=== PATIENT | male | born 1960 | race Caucasian/White ===

== ENCOUNTER 2017-03-31 20:29 | Emergency (ER) | payer BC ==
[~2017-03-31] VITALS: Ht 175.3 cm; Wt 94.1 kg
[2017-03-31 20:35] VITALS: BP 163/105; TEMP 36.5; Ht 175.3 cm; Wt 94.1 kg
[2017-03-31] MEDS ORDERED: AMOX875T PO (21:14)
[2017-03-31] MEDS ORDERED: AMOXICILLIN/CLAVULANATE TAB 875 MG TAB PO ONE (21:15)
[2017-03-31] MEDS ORDERED: PRLSR20 PO (21:18)
[2017-03-31] MEDS ORDERED: IBUP-103 PO (21:18)
[2017-03-31 21:33] VITALS: PULSE 72; O2SAT 98
--- NOTE | 2017-03-31 22:45 | EMERGENCY ROOM VISIT NOTE ---
History First contact with patient: 20:55 Chief Complaint: HEADACHE Stated Complaint: HEADACHE History of Present Illness The patient is a 57 year old male who presents to the Emergency Room with complaints of a frontal headache, dental pain and recent bilateral ear fullness. The patient reports that he did have a mild cold approximately 2 weeks ago. In addition to the year fullness, the patient then started to notice pressure in his forehead and face. The patient reports a worsening headache today. He has also noticed some weakness, chills and sweatiness. He denies any chest pain, cough, urinary symptoms or diarrhea. He denies any history of chronic or recurrent sinusitis. He rates his overall discomfort an 8 out of 10. Review of Systems 10 system review was performed and was negative except for pertinent positives and negatives as indicated in history of present illness Past Medical/Surgical History Medical Problems: (1) No significant past medical history Surgical Problems: (1) No history of previous surgery Family History FH: cancer FH: gallbladder disease FH: heart disease Social History Smoking Status: Never Smoker Smokeless Tobacco Use: Yes Alcohol Use: occasionally Marital Status: Occupation Status: employed Current/Historical Medications Scheduled Amoxicillin & Pot Clavulanate (Augmentin 875-125 mg), 1 TAB PO BID Omeprazole (Prilosec), 20 MG PO DAILY Scheduled PRN Ibuprofen Tab (Advil), 400-600 MG PO Q6H PRN for Pain or Fever Allergies Coded Allergies: No Known Allergies (Unverified , 03/31/17) Physical Exam Vital Signs Date Time Temp Pulse Resp B/P Pulse Ox O2 Delivery O2 Flow Rate FiO2 03/31/17 21:33 72 20 98 03/31/17 20:35 36.5 74 18 163/105 98 Room Air Pain Rating (0-10): 8.0 Physical Exam CONSTITUTIONAL: Healthy and well nourished. Alert and oriented X 3 with positive affect. Patient does not appear in any acute distress, nor does he appear toxic. HEENT: Normocephalic, atraumatic. Pupils equal, round and reactive. Examination shows bilateral TM bulging without air-fluid levels, serous or purulent effusion. Nares are clear. The patient does have tenderness to palpation and percussion of the frontal and maxillary sinuses. OROPHARYNX: Mild postnasal drip. No tonsillar hypertrophy or exudates. NECK: Full active range of motion without discomfort. No nuchal rigidity. RESPIRATORY: Clear to auscultation bilaterally with no wheezing, crackles, rhonchi or stridor. CARDIOVASCULAR: Regular rate and rhythm with no murmurs, rubs or gallops. MUSCULOSKELETAL: Full range of motion of all joints without discomfort. INTEGUMENTARY: No rash or other significant dermatologic conditions noted. NEUROLOGIC: Cranial nerves II-XII grossly intact. No focal neurologic deficits noted. Medical Decision & Procedures Medications Administered Medications (Trade) Dose Ordered Sig/Gabriele Route Start Time Stop Time Status Last Admin Dose Admin Amoxicillin/ Clavulanate Potassium (Augmentin Tab) 875 mg ONE ONCE PO 03/31/17 21:15 03/31/17 21:16 DC 03/31/17 21:21 875 MG ED Course Patient history and physical exam were performed. Nurse's notes were reviewed. Vital signs were reviewed, showing an elevated blood pressure 163/105. Patient history and clinical exam findings are consistent with an acute sinusitis. The patient was administered Augmentin 875 mg orally, and received a prescription for Augmentin 875 mg twice a day 10 days. The patient was encouraged to alternate ibuprofen and Tylenol as needed for pain. Follow-up with PCP for recheck in the next 3-5 days if symptoms are not improving. He was instructed to seek further emergent reevaluation for any progressively worsening headache, fevers or other concerning symptoms. I also encouraged the patient to follow-up with his family doctor regarding his elevated blood pressure reading in the emergency department. The patient was happy with plan of care, and voiced understanding of all discharge instructions. Impression Primary Impression: Acute sinusitis Additional Impression: Elevated blood pressure reading Departure Information Dispostion Home / Self-Care Condition FAIR Prescriptions Amoxicillin & Pot Clavulanate (Augmentin 875-125 mg) 1 Tab Tab 1 TAB PO BID for 10 Days, #20 TAB Prov: Edwin Snow PA 03/31/17 Forms HOME CARE DOCUMENTATION FORM, IMPORTANT VISIT INFORMATION Patient Instructions Sinusitis Acute, Sinusitis Self Care, [facility] Additional Instructions Read sinusitis handout. Take Augmentin 875 mg twice daily for 10 days. Ibuprofen or Tylenol as needed for pain. Follow-up with your family doctor for reevaluation in 3-5 days. Seek sooner for reevaluation for any progressively worsening symptoms or developing fever. Problem Qualifiers Primary Impression: Acute sinusitis Sinusitis location: unspecified location Recurrence: non-recurrent Qualified Codes: J01.90 - Acute sinusitis, unspecified
== END 2017-03-31 21:34 | disposition home or self-care (01) ==
LOC: C.EDB 20:31
DX: J20.9 Acute bronchitis, unspecified (principal); R03.0 Elevated blood-pressure reading, without diagnosis of hypertension; Z80.9 Family history of malignant neoplasm, unspecified; Z83.79 Family history of other diseases of the digestive system; Z82.49 Family history of ischemic heart disease and other diseases of the circulatory system

== ENCOUNTER 2019-10-05 09:58 | Inpatient (IN) ==
--- NOTE | 2019-09-20 16:40 | PAT Medication Instructions ---
Medication Instructions Date of Service September 20, 2019 Home Medications amlodipine 5 mg PO QAM carvedilol [Coreg] 12.5 mg PO BID multivitamin 1 cap PO QAM omeprazole 20 mg PO QAM ascorbic acid (vitamin C) [Vitamin C] 500 mg PO DAILY DO NOT take the morning of surgery multivitamin 1 cap PO QAM ascorbic acid (vitamin C) [Vitamin C] 500 mg PO DAILY Take morning of surgery With a small sip of water, OTHERWISE NOTHING TO EAT OR DRINK AFTER MIDNIGHT: amlodipine 5 mg PO QAM carvedilol [Coreg] 12.5 mg PO BID omeprazole 20 mg PO QAM Other Notes If you have any questions please call us at [phone] or [phone] or [phone] or [phone]
--- NOTE | 2019-09-21 11:34 | Anesthesiology Consultation ---
Date of Service September 21, 2019 Assessment & Plan (1) Encounter for pre-operative examination: Chart Review Chart Review: Pending: Refer to Additional Notes / Consult section (pending preop testing (labs, EKG, CXR)) and Patient seen in Pre Admission Testing Teaching & Discussion Pre-Anesthesia Teaching/Discussion Notes: Instructed NPO after midnight before surgery,except medications with 15 cc of water. Medication instructions provid ed according to the PAT guidelines. History Surgery Operation Date: 10/02/19 07:45 Proposed Procedures p L4-L5 Decompression and Fusion, L5-S1 Hardware Removal, Spinal Cord Monitoring - Joel Green DO Height/Weight Height: 5 ft 9 in Weight: 100.7 kg Allergies Allergy/AdvReac Type Severity Reaction Status Date / Time No Known Allergies Allergy Verified 09/18/19 09:43 Medications Home Medications Medication Instructions Recorded Confirmed Last Taken amlodipine 5 mg PO QAM 08/17/18 09/18/19 09/18/19 carvedilol [Coreg] 12.5 mg PO BID 08/17/18 09/18/19 09/18/19 multivitamin 1 cap PO QAM 08/17/18 09/18/19 09/10/18 07:00 omeprazole 20 mg PO QAM 08/17/18 09/18/19 09/18/19 ascorbic acid (vitamin C) [Vitamin 500 mg PO DAILY 09/18/19 09/18/19 Unknown C] Past Medical History Medical History Erythema migrans (Lyme disease) 1.5 years s/p treatment Degenerative disc disease B/L LE numbness (L>R) GERD (gastroesophageal reflux disease) controlled Hypertension Osteoarthritis Exercise / Class Metabolic Activity II 4-5 Yardwork/Stairs/Walk up hill (one flight of stairs (no chest/no sob)) Past Family History Family History Father Family history of heart attack Other Family history of cancer in father Family history of diabetes mellitus in father Past Surgical History Surgical History History of colonoscopy History of colonoscopy with polypectomy History of esophagogastroduodenoscopy (EGD) History of hemorrhoidectomy History of herniorrhaphy UMBILICAL HERNIA History of lumbar fusion L5-S1 History of tonsillectomy Past Anesthesia History No Hx of Anesthesia Complications and No Family Hx of Anesthesia Complications History of PONV No Hx of PONV and Hx of Motion Sickness (mild) Social History Smoking Status: Never smoker tobacco type: smokeless tobacco Do You Dip or Chew Tobacco: Yes (1 CAN PER 2 DAYS/ADVISED NPO) Hx Alcohol Use: Yes Alcohol type: beer alcohol intake frequency: 0-2 drinks per day Alcohol Intake Frequency Comment: 1 BEER/DAY Hx Substance Use: No substance use type: does not use Review of Systems Reflux controlled. Patient denies chest pain, shortness of breath, dyspnea on exertion, cough, wheezing, palpitations. Physical Exam Vital Signs VITALS BP 133/85 P 68 TEMP 98.3 SP02 94%RA RESP 18 PHYSICAL Full neck and c-spine range of motion. Full TMJ range of motion. TMD 3 finger breaths Mallampati Score 2 Dentition: intact Lungs: clear throughout to auscultation, missing molars Cardiac: regular rate and rhythm, no murmurs noted Spine: normal Carotid arteries: negative bruit Extremities: no edema Testing Echocardiogram Date: 05/08/18 EF: 60-65% LV Function: normal Other Findings: + LVH (mild concentric) and + diastolic dysfunction (Grade 1 (abnormal relaxation pattern)) Valvular Disease: + no significant valvular disease
--- NOTE | 2019-09-21 12:06 | XRay Report ---
XR chest Pre-admission PA/Lat CLINICAL HISTORY: 59 years-old Male presenting with preoperative assessment. TECHNIQUE: PA and lateral views of the chest were obtained. COMPARISON: 08/23/2018. FINDINGS: Borderline cardiomegaly. Lungs and pleural spaces clear. Degenerative changes of the thoracic spine. Upper abdomen normal. IMPRESSION: 1. Borderline cardiomegaly. No other convincing evidence of acute cardiopulmonary disease. Electronically signed by: Randell Quan M.D. 09/21/2019 12:04 PM
[2019-09-21 12:09] LABS: Basophils # (auto) 0.06 K/uL (0-0.2); Eosinophils # (auto) 0.28 K/uL (0-0.5); Eosinophils % (auto) 4.9 %; Hematocrit (blood only) 42.2 % (42-52); Hemoglobin 14.7 g/dL (14.0-18.0); Immature Granulocytes # (auto) 0.01 K/uL (0.00-0.02); Immature Granulocytes % (auto) 0.2 %; Lymphocytes # (auto) 1.83 K/uL (1.2-3.4); Mean Corpuscular Hgb Conc 34.8 g/dL (32-36); Mean Corpuscular Volume 91.7 fL (80-100); Mean Platelet Volume 8.5 fL (7.4-10.4); Monocytes # (auto) 0.47 K/uL (0.11-0.59); Monocytes % (auto) 8.2 %; Neutrophils # (auto) 3.07 K/uL (1.4-6.5); Neutrophils % (auto) 53.7 %; Platelet Count 243 K/uL (130-400); RDW Coefficient of Variation 12.1 % (11.5-14.5); RDW Standard Deviation 40.7 fL (36.4-46.3); White Blood Count 5.72 K/uL (4.8-10.8)
[2019-09-21 12:12] LABS: Appearance Urine Clear (Clear); Bilirubin Urine Negative (Negative); Blood Urine Negative (Negative); Color Urine Yellow; Glucose Urine UA Negative (Negative); Ketones Urine Negative (Negative); Leukocyte Esterase Urine Negative (Negative); Nitrite Urine Negative (Negative); Protein Urine Negative (Negative); Specific Gravity Urine 1.015 (1.000-1.030); Urobilinogen Urine Negative (Negative)
[2019-09-21 12:16] LABS: Calcium 9.4 mg/dl (8.5-10.1); Creatinine Clr Calc Pharmacy 95.3 ml/min; Est GFR (African American) 96.4; Est GFR (Non-African American) 83.2; Potassium 4.1 mmol/L (3.5-5.1)
[2019-09-21 12:27] LABS: Partial Thromboplastin Time 28.2 Seconds (21.0-31.0); Prothrombin Time 10.7 Seconds (9.0-12.0)
[~2019-10-05 09:58] MED LIST: ACETAMINOPHEN 500 MG TAB PO SCH; CEFAZOLIN 2000MG 2,000 MG/15 ML SYR IV SCH; CeleBREX 200 MG CAP PO SCH; GABAPENTIN 600 MG DOSE PO SCH; LR 15ML/HR IV SCH
[2019-10-05] MEDS ORDERED: ONDANSETRON INJ 2 MG/ML 2 ML VIAL IV PRN ×2 (10:38→15:47)
[2019-10-05] MEDS ORDERED: ATROPINE SULFATE 0.1 MG/ML 10ML SYR IV PRN (10:38)
[2019-10-05] MEDS ORDERED: ePHEDrine sulfate 50 MG/ML AMP IV PRN (10:38)
[2019-10-05] MEDS ORDERED: MoRPHine SULFATE 10 MG/ML CARP/VIAL IV PRN (10:38)
[2019-10-05] MEDS ORDERED: MIDAZOLAM HCL 1 MG/ML 2ML VIAL ONE (11:43)
[2019-10-05] MEDS ORDERED: fentaNYL citrate 100 MCG/2 ML VIAL ONE ×5 (11:43→14:15)
[2019-10-05] MEDS ORDERED: HYDROmorphone INJ 2 MG/ML SYR/VIAL ONE ×2 (11:43→14:38)
--- NOTE | 2019-10-05 12:01 | History & Physical Bridge Note ---
Date of Service October 05, 2019 History & Physical Bridge Note I have examined the patient, reviewed the History & Physical and in the interval since the performance of the History & Physical I have noted the following changes of clinical significance: no changes noted
--- NOTE | 2019-10-05 12:05 | History & Physical Report ---
Date of Service October 05, 2019 Assessment & Plan (1) Neurogenic claudication due to lumbar spinal stenosis: L4-L5 decompression and fusion hardware removal L5-S1 Present on Admission?: Yes History of Present Illness Chief Complaint: Back and bilateral leg pain Primary Care Provider: Amparo Ojeda MD This is a 59-year-old male well-known to me that presents with worsening back and leg pain. After failing course of nonoperative care is here for surgical intervention. Allergies Allergy/AdvReac Type Severity Reaction Status Date / Time No Known Allergies Allergy Verified 10/05/19 10:26 Home Medications Home Medications Medication Instructions Recorded Confirmed Type amlodipine 5 mg PO QAM 08/17/18 10/05/19 History carvedilol [Coreg] 12.5 mg PO BID 08/17/18 10/05/19 History multivitamin 1 cap PO QAM 08/17/18 10/05/19 History omeprazole 20 mg PO QAM 08/17/18 10/05/19 History ascorbic acid (vitamin C) [Vitamin 500 mg PO DAILY 09/18/19 10/05/19 History C] Past Med/Surg History Medical History Erythema migrans (Lyme disease) 1.5 years s/p treatment Degenerative disc disease B/L LE numbness (L>R) GERD (gastroesophageal reflux disease) controlled Hypertension Osteoarthritis Surgical History History of colonoscopy History of colonoscopy with polypectomy History of esophagogastroduodenoscopy (EGD) History of hemorrhoidectomy History of herniorrhaphy UMBILICAL HERNIA History of lumbar fusion L5-S1 History of tonsillectomy Family History Father Family history of heart attack Other Family history of cancer in father Family history of diabetes mellitus in father Social History Preferred Language: Kyr[place]z Communication Ability: Effective 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 Results & Data Vital Signs (Past 12 Hours) Vital Signs Temp Pulse Resp BP Pulse Ox 10/05/19 10:28 36.8 C 61 18 138/85 95
[2019-10-05] MEDS ORDERED: BUPIVACAINE/EPINEPHRINE 0.25% 1:200,000 30 ML VIAL ONE (12:13)
[2019-10-05] MEDS ORDERED: BACITRACIN INJ 50,000 UNIT VIAL ONE (12:13)
[2019-10-05] MEDS ORDERED: FLOSEAL HEMOSTATIC MATRIX 10ML TOP ONE (14:30)
[2019-10-05] MEDS ORDERED: PROPOFOL IV EMULSION 10 MG/ML 20 ML VIAL IV ONE (14:39)
[2019-10-05] MEDS ORDERED: DEXAMETHASONE SOD INJ 4 MG/ML VIAL ONE (14:39)
[2019-10-05] MEDS ORDERED: GLYCOPYRROLATE 0.2 MG/ML VIAL ONE (14:39)
[2019-10-05] MEDS ORDERED: ePHEDrine sulfate 50 MG/ML SYR ONE (14:39)
[2019-10-05] MEDS ORDERED: ROCURONIUM BROMIDE 10 MG/ML 5 ML VIAL ONE (14:39)
[2019-10-05] MEDS ORDERED: NEOSTIGMINE METHYLSULFATE 1 MG/ML 10ML VIAL ONE (14:39)
[2019-10-05] MEDS ORDERED: LIDOCAINE HCL 2% 2 ML VIAL/AMP(20MG/ML) INFIL ONE (14:39)
[2019-10-05] MEDS ORDERED: ONDANSETRON INJ 2 MG/ML 2 ML VIAL ONE (14:39)
[2019-10-05] MEDS ORDERED: ePHEDrine sulfate 50 MG/ML AMP ONE (14:39)
--- NOTE | 2019-10-05 14:53 | Operative Report ---
Post Operative Report Pre & Post Diagnosis Operation Date: 10/02/19 12:45 <No data on this case meets the specified criteria> Operation Date: 10/05/19 11:30 Pre-Op Diagnosis: Lumbar spinal stenosis with neurogenic claudication Post-Op Diagnosis: Same I identified the patient and participated in the time-out.: Yes Procedure Operation Date: 10/02/19 12:45 <No data on this case meets the specified criteria> Operation Date: 10/05/19 11:30 Actual Procedures #1 removal of posterior instrumentation L5-S1. #2 exploration of fusion L5-S1. #3 lumbar decompression with bilateral medial facetectomies and foraminotomies L3-4 L4-5. #4 posterior spinal fusion L4-5. #5 placement posterior instrumentation L4-5 L5-S1. #6 interbody fusion L4-5 per #7 placement of titanium 12 x 26 mm cage at L5-S1. #8 placement locally harvested morselized autograft in the posterior lateral gutters. #9 placement infuse collagen sponge by mass graft in the posterior lateral gutters and ostial amp in the interbody space. Surgeon Joel Green, DO Extension Work Instructor None Estimated Blood Loss 525 Findings See Below The patient is 5 foot 9 inches tall weighing over 99 kg with a BMI in excess of 32. This combined with excess blood loss over 500 cc created significant technical difficulty at at least 40% increase in operative time. Specimens None Indications This is a 59-year-old male well-known to me that presents with above-mentioned diagnosis after failing extensive course of nonoperative care is here for surgical intervention. Description of Procedure Patient was met with identified and informed consent obtained. Patient was then taken to the operative suite underwent intubation placed in the prone position on the Jono table on top of the Arian frame. All bony prominences well- padded eyes inspected to ensure no external pressure placed upon the peer at this point the lumbar spine was prepped and draped in a normal sterile fashion. Sharp dissection with the assistance of Bovie cautery was performed down to and exposing the lamina transverse processes of L4 and instrumentation at L5 and S1 levels bilaterally. Then proceed remove the hardware bilaterally exploring the fusion mass noting to be maturing. I performed a complete laminectomy of L4 partial laminectomy of L3 including bilateral medial vasectomies foraminotomies addressing stenosis. Pedicle screws were then placed in L4-L5 and S1 levels bilaterally with assistance of fluoroscopy the process loraine placed. By way of a trans-foraminal approach on the left complete discectomy was performed endplates curetted to subcortical mean bone and a 12 x 26 mm titanium cage filled with ostium bone graft tapped in position. Rods and locked in final position bilaterally. The transverse processes of L4 and L5 bur to subcortical bleeding bone. Infuse collagen sponge master graft and local autograft was placed in the posterior lateral gutters. 15 round BEA drain inserted. Incision was then closed with 1 Vicryl in the fascia 2-0 Vicryl subtenons in 4 Monocryl for final skin closure. Steri-Strip sterile dressings placed. Patient awakened taken to PACU stable condition. Please note spinal cord monitoring was utilized that the procedure no changes noted. I attest to the content of the Intraoperative Record and any orders documented therein. Any exceptions are noted below.
[2019-10-05] MEDS: fentaNYL citrate 100 MCG/2 ML VIAL IV PRN ×2 (15:10→15:15)
--- NOTE | 2019-10-05 15:36 | Fluoroscopy Report ---
FL lumbar spine 2-3V CLINICAL HISTORY: L4-L5 DECOMPRESSION AND FUSION L5-S1 HARDWARE REMOVAL COMPARISON STUDY: None FLUOROSCOPY TIME: 10 seconds NUMBER OF FLUOROSCOPIC IMAGES: 2 FINDINGS: Image intensifier support for an L4-S1 decompression and fusion procedure. There was partia l hardware removal. IMPRESSION: Image intensifier support for low lumbar laminectomy and fusion. The above report was generated using voice recognition software. It may contain grammatical, syntax or spelling errors. Electronically signed by: Bijan Duran M.D. 10/05/2019 3:35 PM
[2019-10-05] MEDS: LACTATED RINGER'S 1,000 ML IV SCH ×2 (15:45→18:42)
[2019-10-05] MEDS ORDERED: DO NOT ADMINISTER PNEUMOCOCCAL VACCINE PRN (15:47)
[2019-10-05] MEDS ORDERED: DO NOT ADMINISTER FLU VACCINE PRN (15:47)
[2019-10-05] MEDS ORDERED: ACETAMINOPHEN 500 MG TAB PO PRN (15:47)
[2019-10-05] MEDS ORDERED: SOD PHOSPHATE/SOD BIPHOSPHATE ENEMA 132 ML BTL PR PRN (15:47)
[2019-10-05] MEDS ORDERED: HYDROmorphone INJ 1 MG/ML SYRINGE IV PRN (15:47)
[2019-10-05] MEDS ORDERED: NALOXONE HCL 0.4 MG/1 ML VIAL/CARP IV PRN (15:47)
[2019-10-05] MEDS ORDERED: ACETAMINOPHEN 1,000 MG/100 ML VIAL IV PRN (15:47)
[2019-10-05] MEDS ORDERED: TRAMADOL HCL 50 MG TABLET PO PRN (15:47)
[2019-10-05] MEDS ORDERED: LORazepam 0.5 MG TAB PO PRN (15:47)
[2019-10-05] MEDS ORDERED: BISACODYL 10 MG SUPP PR PRN (15:47)
[2019-10-05] MEDS ORDERED: LORazepam 0.5 MG/1 ML VIAL IV PRN (15:47)
[2019-10-05] MEDS ORDERED: OXYCODONE HCL IR 5 MG TAB (IMMEDIATE RELEASE) PO PRN (15:47)
[2019-10-05] MEDS ORDERED: METOCLOPRAMIDE HCL INJ 5 MG/ML 2 ML VIAL IV PRN (15:47)
[2019-10-05] MEDS ORDERED: HYDROmorphone INJ 0.5 MG/0.5 ML SYR IV PRN (15:47)
[2019-10-05] MEDS ORDERED: MAGNESIUM HYDROXIDE SUSP 30 ML UDC PO PRN (15:47)
[2019-10-05] MEDS ORDERED: PROMETHAZINE HCL 12.5 MG in SODIUM CHLORIDE 0.9% 50 ML IV PRN (15:47)
[2019-10-05] MEDS ORDERED: ALUMINUM/MAGNESIUM SUSP 30 ML UDC PO PRN (15:47)
[2019-10-05] MEDS ORDERED: ONDANSETRON 4 MG OD TAB PO PRN (15:47)
[2019-10-05] MEDS ORDERED: FAMOTIDINE 20 MG TAB PO PRN (15:47)
--- NOTE | 2019-10-05 16:02 | Anesthesiology Progress Note ---
Date of Service October 05, 2019 Anesthesia Post Procedure Vital Signs Vital Signs: Temp Pulse Pulse Resp BP Pulse Ox 10/05/19 15:35 75 16 129/77 99 10/05/19 15:25 36.5 C 59 L 14 130/84 94 10/05/19 15:15 70 14 138/79 98 10/05/19 15:05 76 12 140/93 96 10/05/19 14:59 36.1 C L 71 14 141/85 H 96 10/05/19 10:28 36.8 C 61 18 138/85 95 Pain Intensity Back: Pain Intensity: 5 Transfer of Care Handoff Completed per policy Notes Mental Status: alert / awake / arousable and participated in evaluation Patient Amnestic to Procedure: Yes Nausea / Vomiting: adequately controlled Pain: adequately controlled Airway Patency, RR, SpO2: stable & adequate BP & HR: stable & adequate Hydration State: stable & adequate Anesthetic Complications: no major complications apparent and Pt Satisfied with anesthetic care
[2019-10-05] MEDS: KETOROLAC 30 MG/ML VIAL IV SCH ×2 (16:12→21:11)
[2019-10-05] MEDS: carvediloL 12.5 MG TAB PO SCH (20:17)
[2019-10-05] MEDS: CEFAZOLIN 2000MG 2,000 MG/15 ML SYR IV SCH (20:17)
[2019-10-05] MEDS: DOCUSATE SODIUM/SENNA 50/8.6MG TAB PO SCH (20:17)
[2019-10-05] MEDS: ERYTHROMYCIN OP OINT 5 MG/GM 3.5 GM TUBE OPR SCH (22:25)
[2019-10-06] MEDS: LACTATED RINGER'S 1,000 ML IV SCH (00:33)
[2019-10-06] MEDS: KETOROLAC 30 MG/ML VIAL IV SCH ×2 (05:07→09:12)
[2019-10-06] MEDS: CEFAZOLIN 2000MG 2,000 MG/15 ML SYR IV SCH (05:07)
[2019-10-06] MEDS: POLYETHYLENE (MIRALAX) 17 GM PACK PO SCH ×3 (05:07→17:58)
[2019-10-06 05:55] LABS: Basophils # (auto) 0.01 K/uL (0-0.2); Basophils % (auto) 0.1 %; Hematocrit (blood only) 35.7 % (42-52); Hemoglobin 12.5 g/dL (14.0-18.0); Immature Granulocytes # (auto) 0.03 K/uL (0.00-0.02); Immature Granulocytes % (auto) 0.2 %; Lymphocytes % (auto) 10.1 %; Mean Corpuscular Hemoglobin 31.6 pg (25-34); Mean Corpuscular Volume 90.4 fL (80-100); Mean Platelet Volume 8.6 fL (7.4-10.4); Monocytes # (auto) 0.84 K/uL (0.11-0.59); Monocytes % (auto) 6.5 %; Neutrophils # (auto) 10.75 K/uL (1.4-6.5); Neutrophils % (auto) 83.1 %; Platelet Count 223 K/uL (130-400); RDW Standard Deviation 39.8 fL (36.4-46.3); Red Blood Count 3.95 M/uL (4.7-6.1); White Blood Count 12.93 K/uL (4.8-10.8)
[2019-10-06 06:22] LABS: BUN Creatinine Ratio 11.1 (10-20); Calcium 8.4 mg/dl (8.5-10.1); Creatinine Clr Calc Pharmacy 118.5 ml/min; Est GFR (African American) 114.9; Est GFR (Non-African American) 99.2
[2019-10-06] MEDS: PANTOprazole 40 MG TAB PO SCH (07:34)
[2019-10-06] MEDS: AMLODIPINE BESYLATE 5 MG TAB PO SCH (07:34)
[2019-10-06] MEDS: MULTIVITAMIN TAB PO SCH (07:34)
[2019-10-06] MEDS: ASCORBIC ACID 500 MG TAB PO SCH (07:34)
[2019-10-06] MEDS: carvediloL 12.5 MG TAB PO SCH ×2 (07:34→22:10)
[2019-10-06] MEDS: ERYTHROMYCIN OP OINT 5 MG/GM 3.5 GM TUBE OPR SCH ×3 (07:35→22:08)
--- NOTE | 2019-10-06 07:58 | Anesthesiology Progress Note ---
Date of Service October 06, 2019 Anesthesia Post Procedure Vital Signs Vital Signs: Temp Pulse Pulse Pulse Pulse Pulse Resp 10/06/19 02:57 36.4 C L 88 16 10/05/19 23:05 36.6 C 89 16 10/05/19 20:11 36.3 C L 93 H 18 10/05/19 18:46 36.3 C L 89 16 10/05/19 17:55 36.4 C L 86 18 10/05/19 16:54 36.3 C L 77 16 10/05/19 16:15 34.9 C L 71 16 10/05/19 15:35 75 16 10/05/19 15:25 36.5 C 59 L 14 10/05/19 15:15 70 14 10/05/19 15:05 76 12 10/05/19 14:59 36.1 C L 71 14 10/05/19 10:28 36.8 C 61 18 BP BP Pulse Ox 10/06/19 02:57 110/69 98 10/05/19 23:05 120/78 93 10/05/19 20:11 134/88 96 10/05/19 18:46 131/83 91 10/05/19 17:55 133/81 92 10/05/19 16:54 137/84 97 10/05/19 16:15 129/81 93 10/05/19 15:35 129/77 99 10/05/19 15:25 130/84 94 10/05/19 15:15 138/79 98 10/05/19 15:05 140/93 96 10/05/19 14:59 141/85 H 96 10/05/19 10:28 138/85 95 Pain Intensity Back: Pain Intensity: 4 Notes Mental Status: alert / awake / arousable Patient Amnestic to Procedure: Yes Nausea / Vomiting: adequately controlled Pain: adequately controlled Airway Patency, RR, SpO2: stable & adequate BP & HR: stable & adequate Hydration State: stable & adequate Anesthetic Complications: no major complications apparent
[2019-10-06] MEDS ORDERED: VOLUVEN IN NSS IV ONE (08:16)
--- NOTE | 2019-10-06 10:46 | Orthopedic Progress Note ---
Date of Service October 06, 2019 Assessment & Plan (1) Neurogenic claudication due to lumbar spinal stenosis: This time we will continue physical therapy monitor his BEA output anticipate discharge home later this weekend. Present on Admission?: Yes Subjective Back pain controlled left leg pain improved. Physical Exam Physical Exam: Patient is in the chair at the bedside. Is good strength testing. Appears comfortable. Results & Data Vital Signs (Past 12 Hours) Vital Signs Temp Pulse Pulse Pulse Resp BP BP 10/06/19 08:11 36.6 C 80 20 132/81 10/06/19 02:57 36.4 C L 88 16 110/69 10/05/19 23:05 36.6 C 89 16 120/78 Pulse Ox 10/06/19 08:11 93 10/06/19 02:57 98 10/05/19 23:05 93
[2019-10-06] MEDS: DOCUSATE SODIUM/SENNA 50/8.6MG TAB PO SCH (22:10)
[2019-10-07] MEDS: POLYETHYLENE (MIRALAX) 17 GM PACK PO SCH ×3 (01:02→12:36)
[2019-10-07] MEDS: carvediloL 12.5 MG TAB PO SCH (07:31)
[2019-10-07] MEDS: MULTIVITAMIN TAB PO SCH (07:31)
[2019-10-07] MEDS: AMLODIPINE BESYLATE 5 MG TAB PO SCH (07:32)
[2019-10-07] MEDS: PANTOprazole 40 MG TAB PO SCH (07:32)
[2019-10-07] MEDS: ERYTHROMYCIN OP OINT 5 MG/GM 3.5 GM TUBE OPR SCH (07:33)
[2019-10-07] MEDS: ASCORBIC ACID 500 MG TAB PO SCH (07:33)
--- NOTE | 2019-10-07 09:00 | Discharge Summary ---
Date of Service October 07, 2019 Admission HPI Per Admitting Provider This is a 59-year-old male well-known to me that presents with worsening back and leg pain. After failing course of nonoperative care is here for surgical intervention. Admission Exam (Per Admitting) Constitutional WD/WN, vitals as above Eyes normal visual lynch by confrontation ENMT external ear and nose normal, oropharynx normal Neck normal visual inspection Respiratory normal respiratory effort Cardiovascular Extremities: normal capillary refill Gastrointestinal (Abdomen) Inspection/Auscultation: abdomen normal to inspection Musculoskeletal Extremities: extremities normal to inspection and strength 5/5 throughout Gait: normal gait Skin no rashes, warm and dry Neurologic normal touch/pain/proprioception and moves all extremities Psychiatric A+Ox3, euthymic affect Eye Contact: good eye contact Discharge Data Consultations 10/05/19 15:47 Consult Case Management - Discharge Planning Routine Procedures Performed Operation Date: 10/02/19 12:45 <No data on this case meets the specified criteria> Operation Date: 10/05/19 11:30 Actual Procedures p L4-S1 Decompression and Fusion, L4-L5 Interbody Cage(Not Applicable) - Joel Green DO s L5-S1 Hardware Removal with Spinal Cord Monitoring(Not Applicable) - Joel Green DO Hospital Course (1) Neurogenic claudication due to lumbar spinal stenosis: Patient has had an uncomplicated postoperative course status post lumbar fusion. He is being discharged home on postoperative day 2. Pain is greatly improved. Ambling over 600 feet in physical therapy. We will continue with aggressive bowel regimen. Discharge Instructions ACTIVITY RECOMMENDATIONS: SELF CARE INSTRUCTIONS AFTER THORACIC/LUMBAR FUSIONS 1. You may walk to your tolerance. It is good exercise for your legs and back. Expect some back and intermittent leg aches and pains. 2. You may perform "counter-top" level activities (make a sandwich, noemí with a project, etc.). 3. No bending or lifting of more than 10 pounds or back twisting of any nature (roll like a log when turning in bed). 4. You may ride in a car for 20-30 minutes at a time. No driving until after your first visit with your doctor. 5. Frequent changes of position and restricting sitting to 30 minutes at a time will help limit the amount of back spasms and stiffness you may experience. 6. You may discontinue the use of ambulatory aids (cane, crutches, etc.) once your strength and confidence allow. 7. You may manufacturing clerk the shower and let water strike your incision when you arrive home at least once daily. Do not take a tub bath, sit in a hot tub or go into a swimming pool until after your first recheck in the office. SPECIAL CARE INSTRUCTIONS: VERY IMPORTANT TO READ AND REVIEW A. Your surgical incision has been closed with a cosmetic suture under the skin that will dissolve in about 6 weeks. In 14 days, you can use a pair of clean scissors and cut the suture that is left outside of the skin at the ends of your incision. 1. The small skin tapes can be removed 7 days after surgery if they have not fallen off by that point. 2. You may keep the wound open to air as much as possible to promote healing after post-op day number 5 unless told otherwise by your doctor. 3. If you think the wound looks like it is becoming infected (redness or worsening drainage) and/or you are experiencing fever, chill or worsening back pain and muscle spasms, contact the office so that we may evaluate you as soon as possible. B. Complications are uncommon, but please contact us if you have any signs or symptoms of: 1. wound infection (fever higher than 102.5 degrees F, redness, separation of wound, drainage, or increasing pain from the incision) 2. blood clots in legs (pain, swelling, redness and warmth in legs) 3. urinary tract infection (fever higher than 102.5 degrees F, burning upon urination or increased frequency of urination) 4. nerve problems (inability to walk on your toes or heels, numbness, loss of bowel or bladder control) 5. any other symptoms that concern you C. Please call the office at if you have any concerns or questions about your operation or recovery. D. No smoking! Smoking drastically decreases the chance of a solid fusion. E. Do not take any anti-inflammatory medications (Indocin, Advil, Motrin, Aspirin, Naprosyn, etc.) as these may inhibit the chance of a solid fusion. Tylenol is okay to take for pain. MANAGING PAIN AFTER SPINAL SURGERY 1. Narcotic medication is intended for short-term use and will be provided for surgical pain. Surgical pain usually lasts for a period of 4-6 weeks. Narcotic medication includes Percocet, Vicodin, Darvocet, Tylenol #3 or Lortab. 2. Longer-term pain is more appropriately treated with non-narcotic medication such as Tylenol ES. 3. Muscle spasm is not appropriately treated with narcotics. Muscle relaxers such as Soma, Flexeril or Skelaxin can be used along with Tylenol ES. 4. Remember that we all live with some "aches and pains". This is not unusual or uncommon after an injury or as we get older. a. Back pain is expected and may include muscle spasms for 4 to 6 weeks after surgery. The pain should gradually improve. If the pain worsens for no apparent reason, please contact the office. b. Intermittent leg pain may also be experienced and should not be concerned about unless it worsens for no apparent reason. If so, please contact the office. 5. We will provide appropriate medication within the normal guidelines of their prescribed use. We will also be very cautious and aware of potential abuse and extended duration of patients' medication needs. a. Pain medications are for your comfort and to assist with sleep and rest so that the tissue can heal. They are not provided in order to return to normal activity and should not be used through the day. To do so or worsening pain at night can result from ongoing tissue damage and development of tolerance to the prescribed medicine. 6. Please allow 2-3 days to process refills. Prescriptions will not be mailed but must be picked up at the office. FOLLOW UP VISIT: Keep your scheduled follow-up appointment. Any questions, please call the office at . Supervising Physician Co-Signing Physician Notes Dr. Joel Green
--- NOTE | 2019-10-13 08:42 | Coding Query ---
BMI To promote full compliance with coding requirements relating to patient care, physician participation is requested in all cases of sinter press operator uncertainty. Please assist us with the question(s) below: Please place an X within the parenthesis (x). If other, please document: BMI ( ) was documented in this record for this patient. If the BMI is significant, please check the box that provides a more specific associated diagnosis: (x ) Overweight/Obese ( ) Obesity ( ) Morbid obesity ( ) Obesity Hypoventilation Syndrome (OHS) ( ) Heathy weight, not significant ( ) Underweight/Thin ( ) Other, please specify Thank you Jonna PEARCE
== END 2019-10-07 13:22 | disposition home or self-care (01) | DRG 455 ==
LOC: ASU 09:58 → 3E 15:08

== ENCOUNTER 2020-07-18 06:17 | Observation (INO) ==
--- NOTE | 2020-07-02 16:30 | PAT Medication Instructions ---
Medication Instructions Date of Service July 02, 2020 Home Medications amlodipine 5 mg PO QAM carvedilol [Coreg] 12.5 mg PO BID multivitamin 1 cap PO QAM ibuprofen 600 mg PO Q8H PRN omeprazole 20 mg PO QAM ASK your surgeon for instructions ibuprofen 600 mg PO Q8H PRN DO NOT take the morning of surgery multivitamin 1 cap PO QAM Take morning of surgery With a small sip of water, OTHERWISE NOTHING TO EAT OR DRINK AFTER MIDNIGHT: amlodipine 5 mg PO QAM carvedilol [Coreg] 12.5 mg PO BID omeprazole 20 mg PO QAM Take evening before surgery carvedilol [Coreg] 12.5 mg PO BID Other Notes If you have any questions please call us at [phone] or [phone] or [phone] or [phone]
--- NOTE | 2020-07-04 12:45 | Anesthesiology Consultation ---
Date of Service July 04, 2020 Assessment & Plan (1) Encounter for pre-operative examination: *Per PAT assessment on 07/04: Travel screen negative. No known COVID-19 positive contacts. No current COVID-19 related symptoms. Surgeon arranging preop COVID testing (07/15, location TBD). Awaiting results. Chart Review Chart Review: Acceptable Risk for Surgery and Patient seen in Pre Admission Testing Teaching & Discussion Pre-Anesthesia Teaching/Discussion Notes: Instructed NPO after midnight before surgery,except medications with 15 cc of water. Medication instructions provided according to the PAT guidelines. History Surgery Operation Date: 07/18/20 12:35 Proposed Procedures p Partial Nephrectomy Robotic Assisted - Trey Oh MD s Laparoscopic Supraumbilical Hernia Repair - Bijan Buenrostro MD *Left* partial nephrectomy per 06/20/20 urology/surgeon's office visit note Height/Weight Height: 5 ft 9 in Weight: 105.5 kg Allergies Allergy/AdvReac Type Severity Reaction Status Date / Time No Known Allergies Allergy Verified 06/28/20 09:44 Medications Home Medications Medication Instructions Recorded Confirmed Last Taken amlodipine 5 mg PO QAM 08/17/18 06/28/20 10/05/19 08:00 carvedilol [Coreg] 12.5 mg PO BID 08/17/18 06/28/20 10/05/19 08:00 multivitamin 1 cap PO QAM 08/17/18 06/28/20 10/04/19 08:00 ibuprofen 600 mg PO Q8H PRN 06/28/20 06/28/20 Unknown omeprazole 20 mg PO QAM 06/28/20 06/28/20 Unknown Past Medical History Medical History Degenerative disc disease B/L LE numbness (L>R) Diverticular disease Erythema migrans (Lyme disease) 3 years s/p treatment GERD (gastroesophageal reflux disease) controlled Hypertension Obesity Osteoarthritis Renal mass Exercise / Class Metabolic Activity II 4-5 Yardwork/Stairs/Walk up hill Past Family History Family History Father Family history of heart attack Other Family history of cancer in father Family history of diabetes mellitus in father Past Surgical History Surgical History History of colonoscopy History of esophagogastroduodenoscopy (EGD) History of hemorrhoidectomy History of herniorrhaphy UMBILICAL HERNIA History of lumbar fusion L5-S1 History of tonsillectomy History of tooth extraction Past Anesthesia History No Hx of Anesthesia Complications and No Family Hx of Anesthesia Complications History of PONV No Hx of PONV and No Hx of Motion Sickness Social History Smoking Status: Never smoker Do You Dip or Chew Tobacco: Yes (loose tobacco> 1 can/2 days- advised NPO AM DOS) Hx Alcohol Use: Yes Alcohol type: beer alcohol intake frequency: a few times a week Hx Substance Use: No substance use type: does not use Review of Systems Reflux controlled. Patient denies chest pain, shortness of breath, dyspnea on exertion, fever, chills, cough, wheezing, palpitations. Physical Exam Vital Signs VITALS BP 129/83 P 67 TEMP 98.4 SP02 95%RA RESP 16 PHYSICAL Full neck and c-spine range of motion (cervicalgia with extension). Full TMJ range of motion. TMD 3.5 finger breaths Mallampati Score 2 Dentition: missing molars Lungs: clear throughout to auscultation Cardiac: regular rate and rhythm, no murmurs noted Spine: normal Carotid arteries: negative bruit Extremities: no edema Testing Laboratory Results 07/04/20 13:28 07/04/20 13:28 PT 11.0 Seconds (9.0-12.0) 07/04/20 13:28 INR 1.0 (0.9-1.1) 07/04/20 13:28 APTT 30.2 Seconds (21.0-31.0) 07/04/20 13:28 Urine Color Yellow 07/04/20 13:28 Urine Appearance Clear (Clear) 07/04/20 13:28 Urine pH 7.5 (4.5-7.5) 07/04/20 13:28 Ur Specific [place] 1.008 (1.000-1.030) 07/04/20 13:28 Urine Protein Negative (Negative) 07/04/20 13:28 Urine Glucose (UA) Negative (Negative) 07/04/20 13:28 Urine Ketones Negative (Negative) 07/04/20 13:28 Urine Nitrite Negative (Negative) 07/04/20 13:28 Ur Leukocyte Esterase Negative (Negative) 07/04/20 13:28 Blood Type A Positive 07/04/20 13:28 Antibody Screen NEGATIVE 07/04/20 13:28 Electrocardiogram Date: 09/21/19 NSR at 68bpm. iRBBB. Chest X-Ray Date: 09/21/19 Borderline cardiomegaly. No other convincing evidence of acute cardiopulmonary disease. Echocardiogram Date: 05/08/18 EF: 60-65% LV Function: normal Other Findings: + LVH (mild concentric) and + diastolic dysfunction (Grade 1 (abnormal relaxation pattern)) Valvular Disease: + no significant valvular disease
[2020-07-04 14:03] LABS: Basophils # (auto) 0.06 K/uL (0-0.2); Eosinophils # (auto) 0.29 K/uL (0-0.5); Eosinophils % (auto) 4.7 %; Hematocrit (blood only) 43.1 % (42-52); Hemoglobin 14.6 g/dL (14.0-18.0); Immature Granulocytes # (auto) 0.01 K/uL (0.00-0.02); Immature Granulocytes % (auto) 0.2 %; Lymphocytes # (auto) 2.06 K/uL (1.2-3.4); Lymphocytes % (auto) 33.3 %; Mean Corpuscular Hgb Conc 33.9 g/dL (32-36); Mean Corpuscular Volume 91.5 fL (80-100); Mean Platelet Volume 8.9 fL (7.4-10.4); Monocytes # (auto) 0.62 K/uL (0.11-0.59); Neutrophils # (auto) 3.14 K/uL (1.4-6.5); Neutrophils % (auto) 50.8 %; Platelet Count 250 K/uL (130-400); RDW Coefficient of Variation 12.3 % (11.5-14.5); RDW Standard Deviation 41.6 fL (36.4-46.3); Red Blood Count 4.71 M/uL (4.7-6.1); White Blood Count 6.18 K/uL (4.8-10.8)
[2020-07-04 14:13] LABS: Partial Thromboplastin Ratio 1.1; Partial Thromboplastin Time 30.2 Seconds (21.0-31.0)
[2020-07-04 14:43] LABS: Appearance Urine Clear (Clear); Bilirubin Urine Negative (Negative); Blood Urine Negative (Negative); Color Urine Yellow; Glucose Urine UA Negative (Negative); Ketones Urine Negative (Negative); Leukocyte Esterase Urine Negative (Negative); Nitrite Urine Negative (Negative); Protein Urine Negative (Negative); Specific Gravity Urine 1.008 (1.000-1.030); Urobilinogen Urine Negative (Negative); pH Urine 7.5 (4.5-7.5)
[2020-07-04 15:08] LABS: BUN Creatinine Ratio 13.1 (10-20); Calcium 9.1 mg/dl (8.5-10.1); Creatinine Clr Calc Pharmacy 107.1 ml/min; Est GFR (African American) 108.7; Est GFR (Non-African American) 93.8
[~2020-07-18 06:17] MED LIST changes: -ACETAMINOPHEN 500 MG TAB PO SCH; -CeleBREX 200 MG CAP PO SCH; -GABAPENTIN 600 MG DOSE PO SCH
--- NOTE | 2020-07-18 07:23 | History & Physical Bridge Note ---
Date of Service July 18, 2020 History & Physical Bridge Note I have examined the patient, reviewed the History & Physical and in the interval since the performance of the History & Physical I have noted the following changes of clinical significance: no changes noted
[2020-07-18] MEDS ORDERED: GLYCOPYRROLATE 0.2 MG/ML VIAL ONE (07:55)
[2020-07-18] MEDS ORDERED: ePHEDrine sulfate 50 MG/ML AMP ONE ×2 (07:55→11:48)
[2020-07-18] MEDS ORDERED: ONDANSETRON INJ 2 MG/ML 2 ML VIAL ONE ×4 (07:55→08:58)
[2020-07-18] MEDS ORDERED: NEOSTIGMINE METHYLSULFATE 5 MG/5 ML SYR ONE (07:55)
[2020-07-18] MEDS ORDERED: fentaNYL citrate 100 MCG/2 ML VIAL ONE (07:55)
[2020-07-18] MEDS ORDERED: PROPOFOL IV EMULSION 10 MG/ML 20 ML VIAL IV ONE (07:55)
[2020-07-18] MEDS ORDERED: SUCCINYLCHOLINE CHLORIDE 20 MG/ML 10 ML VIAL IV ONE (07:55)
[2020-07-18] MEDS ORDERED: MIDAZOLAM HCL 1 MG/ML 2ML VIAL ONE (07:55)
[2020-07-18] MEDS ORDERED: DEXAMETHASONE SOD INJ 4 MG/ML VIAL ONE ×2 (07:55→08:59)
[2020-07-18] MEDS ORDERED: PHENYLEPHRINE HCL 10 MG/ML VIAL ONE (07:55)
[2020-07-18] MEDS ORDERED: LIDOCAINE HCL 2% 2 ML VIAL/AMP(20MG/ML) INFIL ONE (07:55)
[2020-07-18] MEDS ORDERED: ePHEDrine sulfate 50 MG/ML AMP IV PRN (08:11)
[2020-07-18] MEDS ORDERED: LABETALOL HCL IV 5 MG/ML 20ML IV PRN (08:11)
[2020-07-18] MEDS ORDERED: ONDANSETRON INJ 2 MG/ML 2 ML VIAL IV PRN ×2 (08:11→14:16)
[2020-07-18] MEDS ORDERED: HYDROmorphone INJ 1 MG/ML SYRINGE IV PRN (08:11)
[2020-07-18] MEDS ORDERED: fentaNYL citrate 100 MCG/2 ML VIAL IV PRN (08:11)
[2020-07-18] MEDS ORDERED: ATROPINE SULFATE 0.1 MG/ML 10ML SYR IV PRN (08:11)
[2020-07-18] MEDS ORDERED: MEPERIDINE HCL 25 MG/ML CARP/VIAL IV PRN (08:11)
[2020-07-18] MEDS ORDERED: PHENYLEPHRINE 100MCG/ML 5ML SYR IV PRN (08:11)
[2020-07-18] MEDS ORDERED: BUPIVACAINE 0.5 % 5 MG/1 ML MPF 30ML VIAL ONE (08:38)
[2020-07-18] MEDS ORDERED: HYDROmorphone INJ 2 MG/ML SYR/VIAL ONE (09:14)
[2020-07-18] MEDS ORDERED: WATER, STERILE FOR INJ 10 ML VIAL ONE (09:15)
[2020-07-18] MEDS ORDERED: ROCURONIUM BROMIDE 10 MG/ML 5 ML VIAL IV ONE ×5 (09:18→11:10)
[2020-07-18] MEDS ORDERED: TISSEEL FIBRIN SEALANT 10ML TOP ONE (10:13)
[2020-07-18] MEDS ORDERED: MANNITOL 25% 12.5 GM/50 ML VIAL IV ONE ×2 (10:53→11:00)
[2020-07-18] MEDS ORDERED: FLOSEAL HEMOSTATIC MATRIX 10ML TOP ONE (11:08)
[2020-07-18] MEDS ORDERED: PHENYLEPHRINE 100MCG/ML 5ML SYR ONE (11:27)
[2020-07-18 13:16] LABS: Basophils # (auto) 0.03 K/uL (0-0.2); Basophils % (auto) 0.3 %; Eosinophils # (auto) 0.04 K/uL (0-0.5); Eosinophils % (auto) 0.3 %; Hemoglobin 13.6 g/dL (14.0-18.0); Immature Granulocytes # (auto) 0.02 K/uL (0.00-0.02); Immature Granulocytes % (auto) 0.2 %; Lymphocytes # (auto) 0.81 K/uL (1.2-3.4); Lymphocytes % (auto) 7.1 %; Mean Corpuscular Hemoglobin 30.4 pg (25-34); Mean Corpuscular Volume 91.5 fL (80-100); Mean Platelet Volume 8.8 fL (7.4-10.4); Monocytes # (auto) 0.12 K/uL (0.11-0.59); Neutrophils # (auto) 10.45 K/uL (1.4-6.5); Neutrophils % (auto) 91.1 %; Platelet Count 214 K/uL (130-400); RDW Coefficient of Variation 12.5 % (11.5-14.5); RDW Standard Deviation 41.9 fL (36.4-46.3); Red Blood Count 4.48 M/uL (4.7-6.1); White Blood Count 11.47 K/uL (4.8-10.8)
[2020-07-18 13:17] LABS: Mean Corpuscular Hgb Conc 33.2 g/dL (32-36)
--- NOTE | 2020-07-18 13:20 | Operative Report ---
PG Post Operative Report Pre & Post Diagnosis Operation Date: 07/18/20 08:15 Pre-Op Diagnosis: Left Renal Mass Post-Op Diagnosis: Left Renal Mass I identified the patient and participated in the time-out.: Yes Procedure Operation Date: 07/18/20 08:15 Actual Procedures p Robotic Assisted Left Partial Nephrectomy;(Left) - Trey Oh MD Surgeon Kevin Oh MD Child Care Nurse Marco Chao; Lina Rodrigues; Megan Steele Estimated Blood Loss 200 Findings Consistent with Post-Op Diagnosis Specimens 1. Left renal mass 2. Fat over tumor Description of Procedure Patient was identified in the preoperative holding area, appropriate form consents reviewed and completed and he was transported to the operating suite. Upon arrival received appropriate preoperative antibiotics in the form of Ancef. After positioning him in a [id number] left side up lateral decubitus position he was prepped and draped. To begin the case I passed a Veress needle in the left upper quadrant. I insufflated the abdomen to 12 mmHg. I then proceeded to place ports in a standard fashion for a robotic partial nephrec denisse. I began with a 12 mm Visiport. I proceeded to place my 2 robotic clerical assistant ports and then 2 additional 12 mm assisting ports. Of note, the patient was initially consented for umbilical hernia repair in addition to left partial nephrectomy, Dr. Bijan Buenrostro then entered the room and we did a visual inspection of the umbilical region and saw no evidence of a hernia. We elected to forego that portion of the case. Dr. Buenrostro communicated this with the patient's . I then proceeded to mobilize the colon by medializing and after incising the white line of Toldt. This exposed with underlying Gerota's fascia. I identified the gonadal vein inferior to the kidney and followed until I encountered the renal vein. I circumferentially dissected the vein as well as artery immediately posterior to it. I noted an additional pulse just behind this artery and found a second branch further posterior. Both were circumferentially exposed. I then turned my attention to exposure of the mass. I incised Gerotas fascia and the anterior surface of the kidney and began to dissect laterally. I encountered the medial and inferior border of the mass without difficulty. Then continued to move circumferentially around the backside of the mass. Of note, he has a separate cyst that was just inferior and posterior to the mass I was able to visualize this and avoid encroachment upon it. After feeling that I had adequately exposed renal parenchyma around the border of the mass we prepared for clamping. Laparoscopic ultrasound examination was performed to confirm borders. 12.5 A of mannitol was administered and a straight bulldog clamp was placed across the main renal artery. A second short curved bulldog clamp was placed across the second branch. A straight clamp was placed across the renal vein. I then began to incise the capsule and excised the mass. Of note, the mass with gentle traction actually began to naturally enucleate, but I attempted to leave a margin of tissue on this and I diverted my dissection slightly posterior and to encompass a bit of normal renal parenchyma in addition to the mass. After entirely removing the mass I began reapproximation utilizing a sliding clip technique. 3 suture passes sufficiently close the defect. The clamps were removed in the reverse order that they were placed across the renal hilar structures. 12 minutes of warm ischemic time was noted. I then placed 2 additional sutures across the inferior and superior margin of the defect for further hemostasis. Hemostasis was, however, excellent. FloSeal and Tisseel we re dripped across the defect and the fat was reapproximated. The tumor was collected in an Endo Catch bag as was a bit of fat that had been overlying the tumor and was to be sent as a separate specimen. A drain was guided into the abdomen through the inferior most robotic port. Specimen was extracted through the lower clerical assistant port and all ports were closed with 0 Vicryl through the fascia followed by 4-0 Monocryl in the skin. Half percent Marcaine was utilized for anesthesia and Dermabond was used as a topical dressing. There were no complications. Dr. Marco Chao assisted throughout the resection of the mass and reconstruction of the kidney. Lina Rodrigues and Megan Steele assisted from incision to closure. I attest to the content of the Intraoperative Record and any orders documented therein. Any exceptions are noted below.
[2020-07-18 13:29] LABS: BUN Creatinine Ratio 10.2 (10-20); Calcium 8.9 mg/dl (8.5-10.1); Creatinine Clr Calc Pharmacy 86.9 ml/min; Est GFR (African American) 86.3; Est GFR (Non-African American) 74.4; Potassium 4.3 mmol/L (3.5-5.1)
--- NOTE | 2020-07-18 13:57 | Anesthesiology Progress Note ---
Date of Service July 18, 2020 Anesthesia Post Procedure Vital Signs Vital Signs: Temp Pulse Pulse Resp BP BP Pulse Ox 07/18/20 13:50 82 16 98/71 L 92 07/18/20 13:40 36.2 C L 84 14 114/85 93 07/18/20 13:30 87 22 114/84 94 07/18/20 13:20 72 10 L 98/76 L 92 07/18/20 13:10 70 18 98/71 L 92 07/18/20 13:00 70 19 102/70 92 07/18/20 12:53 36.1 C L 72 19 103/69 95 07/18/20 06:34 36.7 C 68 16 127/79 95 Pain Intensity Abdomen: Pain Intensity: 3 Transfer of Care Handoff Completed per policy Notes Mental Status: alert / awake / arousable Patient Amnestic to Procedure: Yes Nausea / Vomiting: adequately controlled Pain: adequately controlled Airway Patency, RR, SpO2: stable & adequate BP & HR: stable & adequate Hydration State: stable & adequate Anesthetic Complications: no major complications apparent and Pt Satisfied with anesthetic care
[2020-07-18] MEDS ORDERED: MoRPHine SULFATE 4 MG/ML 1 ML CARP\\VIAL IV PRN (14:16)
[2020-07-18] MEDS ORDERED: MoRPHine SULFATE 10 MG/ML CARP/VIAL IV PRN (14:16)
[2020-07-18] MEDS ORDERED: OXYCODONE HCL IR 5 MG TAB (IMMEDIATE RELEASE) PO PRN (14:16)
[2020-07-18] MEDS: ACETAMINOPHEN 1,000 MG/100 ML VIAL IV SCH ×2 (15:00→22:04)
[2020-07-18] MEDS: LACTATED RINGER'S 1,000 ML IV SCH ×2 (15:00→22:02)
[2020-07-18] MEDS: CEFAZOLIN 2000MG 2,000 MG/15 ML SYR IV SCH (16:47)
[2020-07-18] MEDS: OXYCODONE HCL IR 5 MG TAB (IMMEDIATE RELEASE) PO PRN (17:00)
[2020-07-18] MEDS: carvediloL 12.5 MG TAB PO SCH (20:47)
[2020-07-19] MEDS: CEFAZOLIN 2000MG 2,000 MG/15 ML SYR IV SCH (01:12)
[2020-07-19 06:03] LABS: Basophils # (auto) 0.01 K/uL (0-0.2); Basophils % (auto) 0.1 %; Hematocrit (blood only) 37.3 % (42-52); Hemoglobin 12.7 g/dL (14.0-18.0); Immature Granulocytes # (auto) 0.03 K/uL (0.00-0.02); Immature Granulocytes % (auto) 0.2 %; Lymphocytes # (auto) 1.63 K/uL (1.2-3.4); Lymphocytes % (auto) 13.1 %; Mean Corpuscular Hemoglobin 30.9 pg (25-34); Mean Corpuscular Volume 90.8 fL (80-100); Mean Platelet Volume 8.7 fL (7.4-10.4); Monocytes # (auto) 1.31 K/uL (0.11-0.59); Monocytes % (auto) 10.6 %; Neutrophils # (auto) 9.42 K/uL (1.4-6.5); Platelet Count 215 K/uL (130-400); RDW Coefficient of Variation 12.4 % (11.5-14.5); RDW Standard Deviation 41.1 fL (36.4-46.3); Red Blood Count 4.11 M/uL (4.7-6.1)
[2020-07-19] MEDS: ACETAMINOPHEN 1,000 MG/100 ML VIAL IV SCH (06:16)
[2020-07-19 06:30] LABS: BUN Creatinine Ratio 9.4 (10-20); Calcium 8.3 mg/dl (8.5-10.1); Est GFR (African American) 105.9; Est GFR (Non-African American) 91.4
--- NOTE | 2020-07-19 07:22 | Urology Progress Note ---
Date of Service July 19, 2020 Assessment & Plan (1) Renal mass: Postop day #1 status post left robotic partial nephrectomy Carmen out Monitor BEA outputDC later today presuming no major changes Creatinine at baseline Hemoglobin stable Ambulate Advance diet Potential DC home later today Admission and Anticipated Discharge Date Admission Date: July 18, 2020 Subjective No major issues overnight Minimal pain Ambulatory Tolerating his diet Physical Exam Physical Exam: Incisions appropriate, serosanguineous output from the BEA, clear urine Results & Data ([facility]) Vital Signs (Past 12 Hours) Vital Signs Temp Pulse Resp BP BP Pulse Ox 07/19/20 03:21 36.4 C L 93 H 16 121/76 91 07/18/20 23:16 36.5 C 93 H 15 124/78 92 07/18/20 20:46 88 133/80 PG Care Time/CCT Total # of Minutes Spent Total Time Spent with Patient: Total time spent is greater than 50% in coordination of care (as documented) at patient's floor/unit and/or counseling patient: Coding Level of Care Code None Diagnoses Renal mass N28.89
[2020-07-19] MEDS: LACTATED RINGER'S 1,000 ML IV SCH (07:38)
[2020-07-19] MEDS: carvediloL 12.5 MG TAB PO SCH (08:51)
[2020-07-19] MEDS ORDERED: MULTIVITAMIN TAB PO SCH (09:00)
[2020-07-19] MEDS ORDERED: AMLODIPINE BESYLATE 5 MG TAB PO SCH (09:00)
[2020-07-19] MEDS ORDERED: PANTOprazole 40 MG TAB PO SCH (09:00)
[2020-07-19] MEDS: OXYCODONE HCL IR 5 MG TAB (IMMEDIATE RELEASE) PO PRN (11:03)
--- NOTE | 2020-07-23 07:36 | Discharge Summary ---
Date of Service July 23, 2020 Admission HPI Per Admitting Provider presented for robotic partial nephrectomy (left) Principal Diagnosis renal mass Discharge Data Allergies Allergy/AdvReac Type Severity Reaction Status Date / Time No Known Allergies Allergy Verified 07/18/20 06:32 Procedures Performed Operation Date: 07/18/20 08:15 Actual Procedures p Robotic Assisted Left Partial Nephrectomy;(Left) - Trey Oh MD Hospital Course (1) Renal mass: Admitted for left robotic partial nephrectomy Details of the case as dictated previously In summary he tolerated the procedure well and remained stable overnight His kidney function was appropriate as was his hemoglobin. He was hemodynamically stable. Catheter and drain were removed and he was discharged home in stable condition on the evening of postoperative day #1 Total Time Total Time Spent Total Time Spent (In Minutes): 15 Discharge Plan Discharge Items Patient Disposition: Home - Self-Care Reason For Visit: Renal Mass Discharge Diagnosis: Renal Mass Activity: Per Instructions section Lifting: No more than 25 pounds Bathing Comment: No tub baths or soaks. OK to shower 1 day after discharge. Sexual Activity: Wait until after follow-up appointment Exercise/Sports: Wait until after follow-up appointment Driving/Machine Use: No driving while taking prescription pain medication Non-emergency contact: Urologist Call non-emergency contact if: your pain is not controlled, you have a fever, your temperature is above 101, your wound has increased redness, your wound has increased drainage and your wound pain has increased Follow-up/Referrals: Trey Oh MD [Physician] - 07/31/20 1:00 pm Amparo Ojeda MD [Primary Care Provider] - Diet: Regular Addtl Attending Provider Instructions: Please take all medications as prescribed and keep all follow-ups as scheduled. Please call our office at [phone] with any questions, concerns or need to reschedule appointments for any reason. We are happy to assist you. Recovering at home: We recommend having someone with you for the first few days after surgery to help care for you. It is okay to shower tomorrow. Please avoid swimming, bathing or using hot tub until incisions are well healed. Avoid driving until you are not requiring pain medication any further. Walk at least a few times a day. Increase your distance, as you feel able. Stairs in your home are okay. Please avoid strenuous or sexual activity until your follow-up. We recommend using stool softener (i.e. Colace) to prevent constipation and straining, especially the first two weeks post operatively. Call [facility] at [phone] if you experience: Chest pain or trouble breathing (call 911 or go to the hospital). Fever of 101F or higher Symptoms of infection at incision site, including redness or swelling, warmth, or bad-smelling drainage If you have catheter, and you notice: o Bloody urine or drainage that is dark red or has large clots (Please remember a small amount of blood is normal) o No drainage from the catheter for more than 6 hours o The catheter comes out of your bladder Pain that is not controlled with medicines Pending Studies at Discharge: Yes Studies:: Pathology Stand-Alone Forms: [facility], [facility] Pain Management Medications and DC Order Prescriptions: New oxycodone-acetaminophen [Percocet] 5-325 mg tablet 1 tab PO TID PRN (Reason: pain) Qty: 14 RF: 0 docusate sodium [Colace] 100 mg capsule 100 mg PO BID Qty: 60 RF: 0 Continued carvedilol [Coreg] 12.5 mg Tablet 12.5 mg PO BID RF: 0 amlodipine 5 mg Tablet 5 mg PO QAM RF: 0 multivitamin Capsule 1 cap PO QAM RF: 0 ibuprofen 600 mg Tablet 600 mg PO Q8H PRN (Reason: Pain) RF: 0 omeprazole 20 mg Tablet,Disintegrat, Delay Rel 20 mg PO QAM RF: 0 Discharge Orders: Discharge Order (Routine); Ordered 07/19/20 Ordered By: Lina Early/Other Patient Handouts: DVT Post Op Prevention, Preventing Deep Vein Thrombosis, Nephrectomy Dc Admission Data Admit Date/Time: 07/18/20 12:52 Attending Provider: Trey Oh Admit Provider: Trey Oh Primary Care Provider: Amparo Ojeda Other Interventions: Discharge Summary Assessment (RN) Last Done: 07/19/20 14:20 Coding Level of Care Code D/C Day Management <30 mins Diagnoses Renal mass N28.89
== END 2020-07-19 15:14 | disposition home or self-care (01) ==
LOC: ASU 06:17 → 3W 12:52 → INTOOBSV 12:52

== ENCOUNTER 2021-04-16 08:32 | Inpatient (IN) ==
--- NOTE | 2021-03-31 14:09 | PAT Medication Instructions ---
Medication Instructions Date of Service March 31, 2021 Home Medications Medication Instructions Recorded methylprednisolone [Medrol (Onesimo)] See Rx Instructions .ROUTE 01/05/21 .COMPLEX #21 ea oxycodone 5 mg PO Q4 PRN #14 tab 01/05/21 amlodipine 5 mg PO QAM carvedilol [Coreg] 12.5 mg PO BID omeprazole 20 mg PO QAM ibuprofen 200 mg PO Q6H PRN methylprednisolone [Medrol (Onesimo)] See Rx Instructions .ROUTE .COMPLEX multivitamin 1 tab PO QAM oxycodone 5 mg PO Q4 PRN loratadine [Allergy Relief (loratadine)] 10 mg PO DAILY PRN Continue as directed methylprednisolone [Medrol (Onesimo)] See Rx Instructions .ROUTE .COMPLEX ASK your surgeon for instructions ibuprofen 200 mg PO Q6H PRN DO NOT take the morning of surgery multivitamin 1 tab PO QAM loratadine [Allergy Relief (loratadine)] 10 mg PO DAILY PRN Take morning of surgery With a small sip of water, OTHERWISE NOTHING TO EAT OR DRINK AFTER MIDNIGHT: amlodipine 5 mg PO QAM carvedilol [Coreg] 12.5 mg PO BID omeprazole 20 mg PO QAM oxycodone 5 mg PO Q4 PRN (if needed, may be taken up to four hours before surgery) Take evening before surgery carvedilol [Coreg] 12.5 mg PO BID oxycodone 5 mg PO Q4 PRN (if needed) loratadine [Allergy Relief (loratadine)] 10 mg PO DAILY PRN (if needed) Other Notes If you have any questions please call us at [phone] or [phone] or [phone] or [phone]
--- NOTE | 2021-04-02 10:38 | Anesthesiology Consultation ---
Date of Service April 02, 2021 Assessment & Plan (1) Encounter for pre-operative examination: COVID Status: As of 04/02 assessment, patient denies travel to endemic area, known exposure/sick contacts, or symptoms of COVID19. Patient advised to adhere to social distancing guidelines, wear a mask in public and avoid large crowds or unnecessary travel in the 2 weeks leading up to surgery. Preoperative COVID19 testing to be completed prior to surgery per surgeon's arrangements (04/11 at [facility]). Patient encouraged to be extra cautious/conscientious with COVID precautions between COVID testing and surgery. Pt is fully vaccinated for COVID. S/p partial nephrectomy 07/18/20 -- MAC #3, ETT 8.0, grade view I, atraumatic x 1. No complications. Chart Review Chart Review: Acceptable Risk for Surgery and Patient seen in Pre Admission Testing Teaching & Discussion Instructed NPO after midnight before surgery, except medications with 15 cc of water. Medication instructions provided according to the PAT guidelines. History Surgery Operation Date: 04/16/21 10:05 Proposed Procedures p L3-l4 Decompression and Fusion, L4-S1 Hardware Removal, Spinal Cord Monitoring - Joel Green DO Height/Weight Height: 5 ft 9 in Weight: 109.6 kg Allergies Allergy/AdvReac Type Severity Reaction Status Date / Time No Known Allergies Allergy Verified 03/24/21 15:02 Medications Home Medications Medication Instructions Recorded Confirmed Last Taken amlodipine 5 mg PO QAM 08/17/18 03/24/21 01/05/21 carvedilol [Coreg] 12.5 mg PO BID 08/17/18 03/24/21 01/05/21 omeprazole 20 mg PO QAM 06/28/20 03/24/21 01/05/21 ibuprofen 200 mg PO Q6H PRN 01/05/21 03/24/21 01/04/21 22:30 600 mg methylprednisolone [Medrol (Onesimo)] See Rx Instructions .ROUTE 01/05/21 03/24/21 Unknown .COMPLEX #21 ea multivitamin 1 tab PO QAM 01/05/21 03/24/21 01/05/21 oxycodone 5 mg PO Q4 PRN #14 tab 01/05/21 03/24/21 Unknown loratadine [Allergy Relief 10 mg PO DAILY PRN 03/24/21 03/24/21 Unknown (loratadine)] Past Medical History Medical History Degenerative disc disease B/L LE numbness (L>R) Diverticular disease Erythema migrans (Lyme disease) 3 years s/p treatment> resolved GERD (gastroesophageal reflux disease) controlled Hiatal hernia Hypertension Osteoarthritis Renal mass removed Aug 2020 > benign Exercise / Class Metabolic Activity II 4-5 Yardwork/Stairs/Walk up hill Past Family History Family History Father Family history of heart attack Other Family history of cancer in father Family history of diabetes mellitus in father Past Surgical History Surgical History History of colonoscopy last one 03/2021 History of esophagogastroduodenoscopy (EGD) History of hemorrhoidectomy History of herniorrhaphy UMBILICAL HERNIA History of lumbar fusion x3 total > L5-S1 History of tonsillectomy History of tooth extraction Hx of partial nephrectomy Past Anesthesia History No Hx of Anesthesia Complications and No Family Hx of Anesthesia Complications History of PONV No Hx of PONV and No Hx of Motion Sickness Social History Smoking Status: Never smoker tobacco type: smokeless tobacco Do You Dip or Chew Tobacco: Yes (snuff -- advised NPO DOS) Hx Alcohol Use: Yes Alcohol type: beer alcohol intake frequency: a few times a month Hx Substance Use: No substance use type: does not use Review of Systems Pt denies any recent chest pain, shortness of breath, palpitations, cough, fever, URI, or uncontrolled acid reflux. Physical Exam Vital Signs BP: 119/78 P: 79bpm SPO2: 96% RA T: 98.2 F R: 12 ENMT Mouth: no dental restorations, no chipped teeth and no loose teeth Thyromental Distance: < 3.5 Finger Breadths (3) Mallampati Class: II Neck + limited neck extension Respiratory normal respiratory effort, lungs clear to auscultation Auscultation: + bronchovesicular breath sounds Cardiovascular RRR, no murmur, no edema Testing Laboratory Results 04/02/21 10:50 04/02/21 10:50 PT 10.4 Seconds (9.0-12.0) 04/02/21 10:50 INR 1.0 (0.9-1.1) 04/02/21 10:50 APTT 27.0 Seconds (21.0-31.0) 04/02/21 10:50 Urine Color Yellow 04/02/21 08:25 Urine Appearance Clear (Clear) 04/02/21 08:25 Urine pH 7.0 (4.5-7.5) 04/02/21 08:25 Ur Specific [place] 1.020 (1.000-1.030) 04/02/21 08:25 Urine Protein Negative (Negative) 04/02/21 08:25 Urine Glucose (UA) Negative (Negative) 04/02/21 08:25 Urine Ketones Negative (Negative) 04/02/21 08:25 Urine Nitrite Negative (Negative) 04/02/21 08:25 Ur Leukocyte Esterase Negative (Negative) 04/02/21 08:25 Blood Type A Positive 04/02/21 10:50 Antibody Screen NEGATIVE 04/02/21 10:50 Electrocardiogram Date: 04/02/21 Findings: + NSR @ (71bpm) Chest X-Ray Date: 04/02/21 Findings: + NAD
--- NOTE | 2021-04-02 11:26 | XRay Report ---
XR chest Pre-admission PA/Lat HISTORY: Preop. Back pain. COMPARISON: Chest 09/21/2019. FINDINGS: The lungs are clear. Cardiac silhouette is normal in size. No pleural effusions. No pneumot horax. IMPRESSION: No acute process. ACT 112: Negative or not required by law. Electronically signed by: Abdiel Florentino M.D. 04/02/2021 11:24 AM
[2021-04-02 11:36] LABS: Basophils # (auto) 0.07 K/uL (0-0.2); Basophils % (auto) 1.2 %; Eosinophils % (auto) 5.2 %; Hematocrit (blood only) 42.5 % (42-52); Immature Granulocytes # (auto) 0.01 K/uL (0.00-0.02); Immature Granulocytes % (auto) 0.2 %; Lymphocytes # (auto) 1.96 K/uL (1.2-3.4); Lymphocytes % (auto) 33.9 %; Mean Corpuscular Hemoglobin 30.4 pg (25-34); Mean Corpuscular Hgb Conc 32.9 g/dL (32-36); Mean Corpuscular Volume 92.2 fL (80-100); Mean Platelet Volume 8.4 fL (7.4-10.4); Monocytes # (auto) 0.41 K/uL (0.11-0.59); Monocytes % (auto) 7.1 %; Neutrophils # (auto) 3.03 K/uL (1.4-6.5); Neutrophils % (auto) 52.4 %; Platelet Count 269 K/uL (130-400); RDW Coefficient of Variation 12.6 % (11.5-14.5); RDW Standard Deviation 42.2 fL (36.4-46.3); Red Blood Count 4.61 M/uL (4.7-6.1); White Blood Count 5.78 K/uL (4.8-10.8)
[2021-04-02 11:48] LABS: Prothrombin Time 10.4 Seconds (9.0-12.0)
--- NOTE | 2021-04-02 12:58 | Electrocardiogram Report ---
Test Reason : Blood Pressure : / mmHG Vent. Rate : 071 BPM Atrial Rate : 071 BPM P-R Int : 194 ms QRS Dur : 094 ms QT Int : 388 ms P-R-T Axes : 055 060 034 degrees QTc Int : 421 ms Normal sinus rhythm Normal ECG When compared with ECG of 21-SEP-2019 11:29, Incomplete right bundle branch block is no longer Present Confirmed by Kevin Thomas ([id number]) on 04/02/2021 12:58:23 PM Referred By: Joel Green Confirmed By:Lamont Thomas
[2021-04-02 13:22] LABS: BUN Creatinine Ratio 13.5 (10-20); Calcium 8.9 mg/dl (8.5-10.1); Est GFR (African American) 95.1 ml/min; Potassium 4.8 mmol/L (3.5-5.1)
[2021-04-02 13:28] LABS: Appearance Urine Clear (Clear); Bilirubin Urine Negative (Negative); Blood Urine Negative (Negative); Color Urine Yellow; Glucose Urine UA Negative (Negative); Ketones Urine Negative (Negative); Leukocyte Esterase Urine Negative (Negative); Nitrite Urine Negative (Negative); Protein Urine Negative (Negative); Urobilinogen Urine Negative (Negative)
[~2021-04-16 08:32] MED LIST changes: +ACETAMINOPHEN 1000 MG/100 ML IV IV ONE; +ACETAMINOPHEN 500 MG TAB PO SCH; -CEFAZOLIN 2000MG 2,000 MG/15 ML SYR IV SCH; +CeleBREX 200 MG CAP PO SCH; +GABAPENTIN 600 MG DOSE PO SCH; +ceFAZolin 2000MG 2,000 MG/15 ML SYR IV SCH
[2021-04-16] MEDS ORDERED: MIDAZOLAM HCL 1 MG/ML 2ML VIAL ONE (08:56)
[2021-04-16] MEDS ORDERED: fentaNYL citrate 100 MCG/2 ML VIAL ONE (08:57)
[2021-04-16] MEDS ORDERED: ROCURONIUM BROMIDE 10 MG/ML 5 ML VIAL IV ONE ×2 (08:57→11:32)
[2021-04-16] MEDS ORDERED: HYDROmorphone INJ 2 MG/ML SYR/VIAL ONE (08:57)
[2021-04-16] MEDS ORDERED: PROPOFOL IV EMULSION 10 MG/ML 20 ML VIAL IV ONE (08:57)
[2021-04-16] MEDS ORDERED: LIDOCAINE 2% 2 ML VIAL/AMP(20MG/ML) INFIL ONE (08:57)
[2021-04-16] MEDS ORDERED: DEXAMETHASONE SOD INJ 4 MG/ML VIAL ONE (08:58)
[2021-04-16] MEDS ORDERED: ONDANSETRON INJ 2 MG/ML 2 ML VIAL ONE (08:58)
--- NOTE | 2021-04-16 09:47 | History & Physical Bridge Note ---
Date of Service April 16, 2021 History & Physical Bridge Note I have examined the patient, reviewed the History & Physical and in the interval since the performance of the History & Physical I have noted the following changes of clinical significance: no changes noted
--- NOTE | 2021-04-16 09:48 | History & Physical Report ---
Date of Service April 16, 2021 Assessment & Plan (1) Neurogenic claudication due to lumbar spinal stenosis: Admission and Anticipated Discharge Date Admission Date: L3-L4 decompression fusion, L4-S1 hardware removal History of Present Illness Chief Complaint: Back and leg pain Primary Care Provider: Amparo Ojeda MD This is a 61-year-old male well-known to me the presents with chronic persistent back and leg pain. Failing course of nonoperative care is here for surgical intervention. Allergies Allergy/AdvReac Type Severity Reaction Status Date / Time No Known Allergies Allergy Verified 03/24/21 15:02 Home Medications Medication Instructions Recorded Confirmed Type amlodipine 5 mg PO QAM 08/17/18 04/16/21 History carvedilol [Coreg] 12.5 mg PO BID 08/17/18 04/16/21 History omeprazole 20 mg PO QAM 06/28/20 04/16/21 History ibuprofen 200 mg PO Q6H PRN 01/05/21 04/16/21 History methylprednisolone [Medrol (Onesimo)] See Rx Instructions .ROUTE 01/05/21 04/16/21 Rx .COMPLEX #21 ea multivitamin 1 tab PO QAM 01/05/21 04/16/21 History oxycodone 5 mg PO Q4 PRN #14 tab 01/05/21 04/16/21 Rx loratadine [Allergy Relief 10 mg PO DAILY PRN 03/24/21 04/16/21 History (loratadine)] Past Med/Surg History Medical History Degenerative disc disease B/L LE numbness (L>R) Diverticular disease Erythema migrans (Lyme disease) 3 years s/p treatment> resolved GERD (gastroesophageal reflux disease) controlled Hiatal hernia Hypertension Osteoarthritis Renal mass removed Aug 2020 > benign Surgical History History of colonoscopy last one 03/2021 History of esophagogastroduodenoscopy (EGD) History of hemorrhoidectomy History of herniorrhaphy UMBILICAL HERNIA History of lumbar fusion x3 total > L5-S1 History of tonsillectomy History of tooth extraction Hx of partial nephrectomy Family History Father Family history of heart attack Other Family history of cancer in father Family history of diabetes mellitus in father Social History Smoking Status: Never smoker Tobacco Type: Smokeless Tobacco (Dip or Chew) Second Hand Exposure: No; Do You Dip or Chew Tobacco: Yes (snuff -- advised NPO DOS); Tobacco Cessation Education Requested by Patient: No Hx Alcohol Use: Yes Alcohol type: beer Hx Substance Use: No Preferred Language: Greek Communication Ability: Effective 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
[2021-04-16] MEDS ORDERED: BUPIVACAINE/EPINEPHRINE 0.5% MPF 1:200,000 30 ML VIAL ONE (09:55)
[2021-04-16] MEDS ORDERED: PHENYLEPHRINE 100MCG/ML 5ML SYR IV PRN (10:12)
[2021-04-16] MEDS ORDERED: ATROPINE SULFATE 0.1 MG/ML 10ML SYR IV PRN (10:12)
[2021-04-16] MEDS ORDERED: MEPERIDINE HCL 25 MG/ML CARP/VIAL IV PRN (10:12)
[2021-04-16] MEDS ORDERED: HYDROmorphone INJ 1 MG/ML SYRINGE IV PRN ×2 (10:12→13:53)
[2021-04-16] MEDS ORDERED: ONDANSETRON INJ 2 MG/ML 2 ML VIAL IV PRN ×2 (10:12→13:53)
[2021-04-16] MEDS ORDERED: ePHEDrine sulfate 50 MG/ML AMP IV PRN (10:12)
[2021-04-16] MEDS ORDERED: LABETALOL HCL IV 5 MG/ML 20ML IV PRN (10:12)
[2021-04-16] MEDS ORDERED: fentaNYL citrate 100 MCG/2 ML VIAL IV PRN (10:12)
[2021-04-16] MEDS ORDERED: SODIUM CHLORIDE 0.9% INJ 10 ML VIAL ONE (10:41)
[2021-04-16] MEDS ORDERED: GLYCOPYRROLATE 0.2 MG/ML VIAL ONE (11:34)
[2021-04-16] MEDS ORDERED: KETOROLAC 30 MG/ML VIAL ONE (11:34)
[2021-04-16] MEDS ORDERED: NEOSTIGMINE METHYLSULFATE 1 MG/ML 10ML VIAL ONE (11:34)
[2021-04-16] MEDS ORDERED: FLOSEAL HEMOSTATIC MATRIX 10ML TOP ONE (11:50)
--- NOTE | 2021-04-16 12:02 | Operative Report ---
Post Operative Report Pre & Post Diagnosis Operation Date: 04/16/21 10:05 Pre-Op Diagnosis: Neurogenic claudication due to lumbar spinal stenosis Post-Op Diagnosis: Neurogenic claudication due to lumbar spinal stenosis I identified the patient and participated in the time-out.: Yes Procedure Operation Date: 04/16/21 10:05 Actual Procedures #1 Removal of posterior instrumentation L4-5 L5-S1. #2 exploration of fusion L4-5 L5-S1. #3 lumbar decompression with bilateral medial facetectomies and foraminotomies L2-3 and L3-4. #4 posterior spinal fusion L3-4. #5 placement of posterior instrumentation L3-L4. #6 interbody fusion L3-L4. #7 placement peek cage 14 x 26 mm at L3-L4. #8 placement locally harvested morselized autograft in the posterior lateral gutters. #9 placement I factor combined with vitoss in the interbody space and posterior lateral gutters. Surgeon Joel Green, DO Pointer Machine Operator Joanna Daniel Estimated Blood Loss 400 Findings See Below The patient is 5 foot 10 weighing over 108 kg with a BMI in excess of 34. The patient's body habitus did contribute to significant technical difficulty requiring her deepest retractors longus instruments in order to perform his procedure. This added at least 50% increase to the operative time. Specimens None Indications This is a 61-year-old male who presents above-mentioned diagnosis after failing course of nonoperative care is here for the above-mentioned procedure. Description of Procedure Patient was met with identified informed consent obtained. Patient was then taken to the operative suite underwent a patient placed in a prone position the Jono table atop Arian frame. All bony prominences well-padded eyes inspected to ensure no external pressure placed upon the. This point the lumbar spine was prepped and draped in a sterile fashion. Sharp dissection with the a ssistance of Bovie cautery was performed down to and exposing the lamina and transverse processes of L3 and instrumentation at L4-L5 and S1 levels bilaterally. I then proceeded move the hardware bilaterally explore the fusion mass at L4-L5 L5-S1 noting it to be mature and intact. Then performed a complete laminectomy of L3 partial laminectomy L2 including bilateral medial facetectomies and foraminotomies addressing severe spinal stenosis. Pedicle screws were then placed in L3 and L4 bilaterally with assistance of fluoroscopy and appropriate sized loraine placed. By way the transforaminal approach and left complete discectomy of L3-L4 was performed endplates curetted to subcortically bone and a 14 x 26 mm peek cage filled with I factor tapped in position. The rods were then compressed locked into final position bilaterally. The transverse processes of L3 and L4 burred to subcortical bleeding bone. I factor combined with Vitoss was then placed in the posterior lateral gutters 15 round BEA drain inserted. The incision was then closed with 1 Vicryl the fascia 2-0 Vicryl subcutaneously and 4 Monocryl for final skin closure. Steri-Strip sterile dressings placed. Patient waken taken to PACU stable condition. Please note spinal cord monitoring was utilized at the procedure no changes noted. Lastly Joanna Daniel was present at the entire surgery involved the patient positioning complex portions of the surgery and final skin closure. I attest to the content of the Intraoperative Record and any orders documented therein. Any exceptions are noted below.
--- NOTE | 2021-04-16 13:44 | Fluoroscopy Report ---
FL lumbar spine 2-3V CLINICAL HISTORY: L3-L4 Decompression/fusion COMPARISON STUDY: October 05, 2019 FLUOROSCOPY TIME: . NUMBER OF FLUOROSCOPIC IMAGES: 3 FINDINGS: Intraoperative fluoroscopic images presented for review shows transpedicular screws and fixating plat es within L3 and L4 level. Previously seen orthopedic hardware within L5 vertebra was removed. Disc spacers are again seen. IMPRESSION: Partial hardware removal detailed above. ACT 112: Negative or not required by law. The above report was generated using voice recognition software. It may contain grammatical, syntax o r spelling errors. Electronically signed by: Summer Stokes DO 04/16/2021 1:43 PM
[2021-04-16] MEDS ORDERED: DO NOT ADMINISTER FLU VACCINE PRN (13:53)
[2021-04-16] MEDS ORDERED: hydrOXYzine HCl 25 MG TAB PO PRN (13:53)
[2021-04-16] MEDS ORDERED: METOCLOPRAMIDE HCL INJ 5 MG/ML 2 ML VIAL IV PRN (13:53)
[2021-04-16] MEDS ORDERED: MAGNESIUM HYDROXIDE SUSP 30 ML UDC PO PRN (13:53)
[2021-04-16] MEDS ORDERED: PROMETHAZINE HCL 12.5 MG in SODIUM CHLORIDE 0.9% 50 ML IV PRN (13:53)
[2021-04-16] MEDS ORDERED: ALUMINUM/MAGNESIUM SUSP 30 ML UDC PO PRN (13:53)
[2021-04-16] MEDS ORDERED: DO NOT ADMINISTER PNEUMOCOCCAL VACCINE PRN (13:53)
[2021-04-16] MEDS ORDERED: ACETAMINOPHEN 500 MG TAB PO PRN (13:53)
[2021-04-16] MEDS ORDERED: diphenhydrAMINE Capsule 25 MG CAP PO PRN (13:53)
[2021-04-16] MEDS ORDERED: SOD PHOSPHATE/SOD BIPHOSPHATE ENEMA 132 ML BTL PR PRN (13:53)
[2021-04-16] MEDS ORDERED: HYDROmorphone INJ 0.5 MG/0.5 ML SYR IV PRN (13:53)
[2021-04-16] MEDS ORDERED: FAMOTIDINE 20 MG TAB PO PRN (13:53)
[2021-04-16] MEDS ORDERED: LORazepam 0.5 MG TAB PO PRN (13:53)
[2021-04-16] MEDS ORDERED: LORATADINE 10 MG TAB PO PRN (13:53)
[2021-04-16] MEDS ORDERED: traMADol HCL 50 MG TABLET PO PRN (13:53)
[2021-04-16] MEDS ORDERED: ACETAMINOPHEN 1,000 MG/100 ML VIAL IV PRN (13:53)
[2021-04-16] MEDS ORDERED: NALOXONE HCL 0.4 MG/1 ML VIAL/CARP IV PRN (13:53)
[2021-04-16] MEDS ORDERED: ONDANSETRON 4 MG OD TAB PO PRN (13:53)
[2021-04-16] MEDS ORDERED: LORazepam 0.5 MG/1 ML VIAL IV PRN (13:53)
--- NOTE | 2021-04-16 13:53 | Anesthesiology Progress Note ---
Date of Service April 16, 2021 Anesthesia Post Procedure Vital Signs Vital Signs: Temp Pulse Pulse Resp BP Pulse Ox 04/16/21 13:25 36.4 C L 58 L 17 117/74 95 04/16/21 13:15 36.4 C L 68 18 120/77 95 04/16/21 13:05 56 L 6 L 93/68 L 92 04/16/21 12:55 55 L 14 101/67 92 04/16/21 12:45 55 L 14 93/78 L 91 04/16/21 12:35 64 21 111/67 95 04/16/21 12:25 36.0 C L 68 18 108/69 96 04/16/21 09:02 36.4 C L 66 18 147/90 H 96 Transfer of Care Handoff Completed per policy Notes Mental Status: alert / awake / arousable and participated in evaluation Patient Amnestic to Procedure: Yes Nausea / Vomiting: adequately controlled Pain: adequately controlled Airway Patency, RR, SpO2: stable & adequate BP & HR: stable & adequate Hydration State: stable & adequate Anesthetic Complications: no major complications apparent
--- NOTE | 2021-04-16 14:41 | Consultation ---
Date of Consultation April 16, 2021 Assessment & Plan (1) Status post lumbar surgery: Post op day# 0 S/P removal instrumentation L4-S1 and decompression and fusion L2-L4 by Dr Norma MORRIS#400ml -pain management per ortho -wound management per ortho -PT/OT as appropriate -DVT prophylaxis per ortho -incentive spirometry -monitor H&H for acute blood loss anemia; pre-op Hgb: 14 (2) Hypertension: Stable -Continue amlodipine, carvedilol (3) GERD (gastroesophageal reflux disease): -Continue PPI DVT Prophylaxis -SCDs per ortho Disposition per primary service Follows with Dr Ojeda for routine care Pt was seen and care coordinated with Dr Eubanks. See addendum Pt will be followed by Dr Hendricks starting 04/17/21 Thank you for this consultation. We will follow the patient with you during their hospital stay. You can reach a member of the [facility] 07/06 via pager @ [phone]. Supervising Physician Co-Signing Physician Notes I saw this patient with the physician social work assistant, I participated in the history, physical, review of systems, and physical exam on this consult. I reviewed the medications with the patient and the physician social work assistant and helped reconcile the medications. I helped take a detailed family and social history as well. I formulated the assessment and plan personally with the physician social work assistant and went over it with the patient. ROS-No Headache, No Visual Changes, No Nausea, No Vomiting, No Fever, No Chills, No Neck Pain or Stiffness, No Chest Pain, No Palpitations, No SOB, No SANTIZO, No Cough, No Sputum, No Wheezing, No Abdominal Pain, No Diarrhea, No Hematemesis, No Hemoptysis, No Unexpected Weight Loss, No Flank pain, No Melena, No Hematochezia, No Frequency, No Urgency, No Burning, No Hematuria, No Rashes, No Diaphoresis. Appetite is Normal, Sore Back Physical Exam Gen-AAO x 3, NAD, Afebrile, Obese Head-NCAT, EOMI, PERRLA, Anicteric Sclera, No Posterior Pharyngeal Erythema Neck-Supple, No JVD, No Thyromegaly, No Masses, No LAD, No Bruits Lungs-Clear to Auscultation Bilaterally, No Rales, No Rhonchi, No Wheezing, No Crepitus Chest-No S4, +S1, +S2, No S3, No Murmurs, No Rubs, No Gallops, No Ectopy Abdomen-Soft, Bowel Sounds Present, Non Tender, Non Distended, No Hepatomegaly, No Splenomegaly, No Palpable Masses, No Rebound, No Rigidity, No Guarding Musculoskeletal-Decreased Range of Motion due to back, No CVAT, +Drain Extremities-No Cyanosis, No Clubbing, No Edema, +SCDs Nuero-Cranial Nerves II-XII grossly intact, Motor WNL, DTRs WNL, Strength WNL, Non Focal Psych-Normal Mood History of Present Illness Requesting Physician: Dr Green Reason for Consultation: Post op medical management Attending Physician: Joel Green, DO History of Present Illness Pt is 61 y/o M with PMH HTN, GERD, DDD seen in medical consultation s/p removal instrumentation L4-S1 and decompression and fusion L2-L4 today by Dr Green. Post op reports doing well with minimal pain. Still with some numbness BLE post op. Has Carmen cath in place. Denies nausea, vomiting, SOB, CP. Denies fever/chills, NEAL, dizziness, syncope, vision changes, neck pain, cough, sore throat, rhinorrhea, abdominal pain, extremity edema, rashes, urinary symptoms. Allergies Allergy/AdvReac Type Severity Reaction Status Date / Time No Known Allergies Allergy Verified 03/24/21 15:02 Home Medications Medication Instructions Recorded Confirmed Type amlodipine 5 mg PO QAM 08/17/18 04/16/21 History carvedilol [Coreg] 12.5 mg PO BID 08/17/18 04/16/21 History omeprazole 20 mg PO QAM 06/28/20 04/16/21 History ibuprofen 200 mg PO Q6H PRN 01/05/21 04/16/21 History methylprednisolone [Medrol (Onesimo)] See Rx Instructions .ROUTE 01/05/21 04/16/21 Rx .COMPLEX #21 ea multivitamin 1 tab PO QAM 01/05/21 04/16/21 History oxycodone 5 mg PO Q4 PRN #14 tab 01/05/21 04/16/21 Rx loratadine [Allergy Relief 10 mg PO DAILY PRN 03/24/21 04/16/21 History (loratadine)] Patient History Medical History Degenerative disc disease B/L LE numbness (L>R) Diverticular disease Erythema migrans (Lyme disease) 3 years s/p treatment> resolved GERD (gastroesophageal reflux disease) controlled Hiatal hernia Hypertension Osteoarthritis Renal mass removed Aug 2020 > benign Surgical History History of colonoscopy last one 03/2021 History of esophagogastroduodenoscopy (EGD) History of hemorrhoidectomy History of herniorrhaphy UMBILICAL HERNIA History of lumbar fusion x3 total > L5-S1 History of tonsillectomy History of tooth extraction Hx of partial nephrectomy Family History Father Family history of heart attack Other Family history of cancer in father Family history of diabetes mellitus in father Social History Smoking Status: Never smoker Tobacco Type: Smokeless Tobacco (Dip or Chew) Second Hand Exposure: No; Do You Dip or Chew Tobacco: Yes (snuff -- advised NPO DOS); Tobacco Cessation Education Requested by Patient: No Hx Alcohol Use: Yes Alcohol type: beer Hx Substance Use: No Preferred Language: [place] Communication Ability: Effective Service Observer Required: No Beliefs That Will Affect Care: None marital status: Current Living Situation: Spouse current occupational status: employed Other Information That Helps Us Care for You: No Feels Safe at Home: Yes Safety Concerns: Feels Safe At This Time Assistive Devices: Glasses, Oxygen - Continuous and Walker Review of Systems Review of Systems: All systems reviewed & are unremarkable except as noted in HPI & below Physical Exam Physical Exam: General: no distress, overweight Head: normocephalic, atraumatic Eyes: conjunctiva non-injected, anicteric ENT: normal inspection external ears, nose, mucous membranes moist Neck: supple, trachea midline Lungs: clear, no respiratory distress, no wheezing/rhonchi/rales CV: RRR, no murmur, no pretibial edema Abd: normal BS, soft, non-tender Back: dressing in place, +BEA drain in place with serosanguineous drainage Ext: no cyanosis, no calf tenderness Neuro: A&O x 3, no focal deficits noted, normal affect Skin: warm, dry Results & Data ([facility]) Vital Signs (Past 12 Hours) Vital Signs Temp Pulse Pulse Pulse Resp BP Pulse Ox 04/16/21 14:19 74 16 112/78 94 04/16/21 13:45 36.4 C L 60 16 111/77 94 04/16/21 13:25 36.4 C L 58 L 17 117/74 95 04/16/21 13:15 36.4 C L 68 18 120/77 95 04/16/21 13:05 56 L 6 L 93/68 L 92 04/16/21 12:55 55 L 14 101/67 92 04/16/21 12:45 55 L 14 93/78 L 91 04/16/21 12:35 64 21 111/67 95 04/16/21 12:25 36.0 C L 68 18 108/69 96 04/16/21 09:02 36.4 C L 66 18 147/90 H 96
[2021-04-16] MEDS: KETOROLAC 30 MG/ML VIAL IV SCH ×2 (15:28→20:54)
[2021-04-16] MEDS: LACTATED RINGER'S 1,000 ML IV SCH ×2 (18:25→20:55)
[2021-04-16] MEDS: ceFAZolin 2000MG 2,000 MG/15 ML SYR IV SCH (18:26)
[2021-04-16] MEDS: carvediloL 12.5 MG TAB PO SCH (20:54)
[2021-04-16] MEDS: DOCUSATE SODIUM/SENNA 50/8.6MG TAB PO SCH (20:55)
[2021-04-17] MEDS: LACTATED RINGER'S 1,000 ML IV SCH (01:29)
[2021-04-17] MEDS: KETOROLAC 30 MG/ML VIAL IV SCH ×2 (02:13→08:47)
[2021-04-17] MEDS: ceFAZolin 2000MG 2,000 MG/15 ML SYR IV SCH (02:14)
[2021-04-17] MEDS: POLYETHYLENE (MIRALAX) 17 GM PACK PO SCH ×4 (05:46→23:35)
[2021-04-17] MEDS ORDERED: Nursing to Pharmacy Communication SCH (06:15)
[2021-04-17 06:33] LABS: Basophils # (auto) 0.01 K/uL (0-0.2); Basophils % (auto) 0.1 %; Hematocrit (blood only) 36.3 % (42-52); Hemoglobin 12.1 g/dL (14.0-18.0); Immature Granulocytes # (auto) 0.02 K/uL (0.00-0.02); Immature Granulocytes % (auto) 0.2 %; Lymphocytes # (auto) 1.45 K/uL (1.2-3.4); Lymphocytes % (auto) 11.8 %; Mean Corpuscular Hemoglobin 30.4 pg (25-34); Mean Corpuscular Hgb Conc 33.3 g/dL (32-36); Mean Corpuscular Volume 91.2 fL (80-100); Mean Platelet Volume 8.4 fL (7.4-10.4); Monocytes # (auto) 0.83 K/uL (0.11-0.59); Monocytes % (auto) 6.7 %; Neutrophils % (auto) 81.2 %; Platelet Count 228 K/uL (130-400); RDW Coefficient of Variation 12.5 % (11.5-14.5); RDW Standard Deviation 42.3 fL (36.4-46.3); Red Blood Count 3.98 M/uL (4.7-6.1); White Blood Count 12.31 K/uL (4.8-10.8)
[2021-04-17 07:04] LABS: BUN Creatinine Ratio 14.9 (10-20); Calcium 8.3 mg/dl (8.5-10.1); Creatinine Clr Calc Pharmacy 111.7 ml/min; Potassium 4.3 mmol/L (3.5-5.1)
[2021-04-17] MEDS: PANTOprazole 40 MG TAB PO SCH (07:30)
--- NOTE | 2021-04-17 08:24 | Orthopedic Progress Note ---
Date of Service April 17, 2021 Assessment & Plan (1) Neurogenic claudication due to lumbar spinal stenosis: Admission and Anticipated Discharge Date Admission Date: April 16, 2021 At this time we will initiate physical therapy monitor his BEA output and anticipate discharge home this weekend. Subjective Back pain is controlled leg symptoms markedly improved Physical Exam Physical Exam: Patient is comfortable. Patient is good strength testing. Results & Data ([facility]) Vital Signs (Past 12 Hours) Vital Signs Temp Pulse Resp BP BP Pulse Ox 04/17/21 07:10 37.1 C 82 19 110/70 93 04/17/21 03:17 36.6 C 89 18 113/69 94 04/16/21 22:57 36.6 C 87 18 126/75 91
[2021-04-17] MEDS: carvediloL 12.5 MG TAB PO SCH ×2 (08:47→20:10)
[2021-04-17] MEDS: amLODIPine BESYLATE 5 MG TAB PO SCH (08:47)
--- NOTE | 2021-04-17 11:22 | Hospitalist Progress Note ---
Date of Service April 17, 2021 Assessment & Plan (1) Status post lumbar surgery: Post op day#1 S/P removal instrumentation L4-S1 and decompression and fusion L2- L4 by Dr Norma MORRIS#400ml, drain in place -pain management per ortho -wound management per ortho -PT/OT as appropriate -DVT prophylaxis per ortho -incentive spirometry -monitor H&H for acute blood loss anemia; pre-op Hgb: 14 -DC 1-2 days (2) Hypertension: Stable -Continue amlodipine, carvedilol (3) GERD (gastroesophageal reflux disease): -Continue PPI DVT Prophylaxis -SCDs per ortho Disposition per primary service Follows with Dr Ojeda for routine care Labs checked ROS-No Headache, No Visual Changes, No Nausea, No Vomiting, No Fever, No Chills, No Neck Pain or Stiffness, No Chest Pain, No Palpitations, No SOB, No SANTIZO, No Cough, No Sputum, No Wheezing, No Abdominal Pain, No Diarrhea, No Hematemesis, No Hemoptysis, No Unexpected Weight Loss, No Flank pain, No Melena, No Hematochezia, No Frequency, No Urgency, No Burning, No Hematuria, No Rashes, No Diaphoresis. Appetite is Normal, back feels ok Physical Exam Gen-AAO x 3, NAD, Afebrile, +Drain Head-NCAT, EOMI, PERRLA, Anicteric Sclera, No Posterior Pharyngeal Erythema Neck-Supple, No JVD, No Thyromegaly, No Masses, No LAD, No Bruits Lungs-Clear to Auscultation Bilaterally, No Rales, No Rhonchi, No Wheezing, No Crepitus Chest-No S4, +S1, +S2, No S3, No Murmurs, No Rubs, No Gallops, No Ectopy Abdomen-Soft, Bowel Sounds Present, Non Tender, Non Distended, No Hepatomegaly, No Splenomegaly, No Palpable Masses, No Rebound, No Rigidity, No Guarding Musculoskeletal-Full Range of Motion Bilaterally, No CVAT Extremities-No Cyanosis, No Clubbing, No Edema Nuero-Cranial Nerves II-XII grossly intact, Motor WNL, DTRs WNL, Strength WNL, Non Focal Psych-Normal Mood Admission and Anticipated Discharge Date Admission Date: April 16, 2021 Results & Data Results & Data ([facility]) Vital Signs (Past 12 Hours) Vital Signs Temp Pulse Resp BP BP Pulse Ox 04/17/21 07:10 37.1 C 82 19 110/70 93 04/17/21 03:17 36.6 C 89 18 113/69 94
[2021-04-17] MEDS: oxyCODONE HCL IR 5 MG TAB (IMMEDIATE RELEASE) PO PRN (20:10)
[2021-04-17] MEDS: DOCUSATE SODIUM/SENNA 50/8.6MG TAB PO SCH (20:10)
[2021-04-18] MEDS: POLYETHYLENE (MIRALAX) 17 GM PACK PO SCH ×2 (05:44→11:34)
[2021-04-18] MEDS: PANTOprazole 40 MG TAB PO SCH (05:46)
[2021-04-18 06:20] LABS: Hematocrit (blood only) 35.6 % (42-52); Hemoglobin 11.8 g/dL (14.0-18.0); Mean Corpuscular Hemoglobin 30.4 pg (25-34); Mean Corpuscular Hgb Conc 33.1 g/dL (32-36); Mean Corpuscular Volume 91.8 fL (80-100); Mean Platelet Volume 8.6 fL (7.4-10.4); Platelet Count 221 K/uL (130-400); RDW Coefficient of Variation 12.8 % (11.5-14.5); RDW Standard Deviation 43.1 fL (36.4-46.3); Red Blood Count 3.88 M/uL (4.7-6.1); White Blood Count 10.41 K/uL (4.8-10.8)
[2021-04-18 06:55] LABS: BUN Creatinine Ratio 17.3 (10-20); Calcium 8.1 mg/dl (8.5-10.1); Creatinine Clr Calc Pharmacy 102.4 ml/min; Est GFR (African American) 99.9 ml/min; Est GFR (Non-African American) 86.2 ml/min; Potassium 4.3 mmol/L (3.5-5.1)
[2021-04-18] MEDS: amLODIPine BESYLATE 5 MG TAB PO SCH (08:50)
[2021-04-18] MEDS: carvediloL 12.5 MG TAB PO SCH (08:50)
[2021-04-18] MEDS ORDERED: dexAMETHasone 8 MG in SYRINGE 0 ML IV SCH (09:00)
--- NOTE | 2021-04-18 09:18 | Hospitalist Progress Note ---
Date of Service April 18, 2021 Assessment & Plan (1) Status post lumbar surgery: Post op day#2 s/p removal instrumentation L4-S1 and decompression and fusion L2- L4 by Dr Norma MORRIS#400ml, drain in place Per ortho for pain control, wound care, anticoagulation and activities Continue incentive spirometry, PT/OT when appropriate Monitor H&H for acute blood loss anemia (hgb 11.8 -12.1 yesterday) (2) Hypertension: Stable. Continue amlodipine, carvedilol (3) GERD (gastroesophageal reflux disease): Continue PPI PCP: Lynette Salmono: Per primary service Patient seen in collaboration with Dr. Kwan. Please see addendum. Admission and Anticipated Discharge Date Admission Date: April 16, 2021 Subjective Patient seen in 323-1 sitting in bedside chair. Feeling well today with minimal surgical site pain. Preparing for discharge home today. Will be sent home with BEA drain in place with ortho follow up on Wednesday. Denies any fever, chills, headache, chest pain, SOB, nausea, vomiting, diarrhea or constipation. Bowel movement this morning. No issues with urination. Review of Systems Review of Systems: At least ten systems reviewed and negative except as noted in the HPI. Physical Exam Physical Exam: General Appearance: WD/WN, vitals as above, NAD, sitting up in chair, pleasant, conversing easily Head: normocephalic, atraumatic Eyes: normal inspection, PERRL, conjunctivae normal, anicteric sclerae ENT: external ear and nose normal, oropharynx normal Neck: normal visual inspection, trachea midline, no thyromegaly Respiratory: normal respiratory effort, lungs clear to auscultation, no wheeze, rales, rhonchi. No accessory muscle use Cardiovascular: regular rate, rhythm, no murmur appreciated, normal peripheral pulses, no BLE edema Abdomen/GI: normal bowel sounds, soft, nontender, no hepatosplenomegaly Extremities/Musculoskeletal: +Lumbosacral surgical dressing c/d/i. BEA drain visualized. No cyanosis or clubbing, extremities motor strength 5/5 Neurologic: PERRL, CN's II-XI intact bilaterally and moves all extremities Psychiatric: A+Ox3, euthymic affect Skin: no rashes, normal color, warm/dry Results & Data Results & Data ([facility]) Vital Signs (Past 12 Hours) Vital Signs Temp Pulse Resp BP Pulse Ox 04/18/21 08:00 36.8 C 80 18 122/73 97 04/18/21 06:00 36.8 C 70 20 126/85 95 04/17/21 23:30 36.6 C 75 20 126/72 96 Laboratory Results Short CBC 04/18/21 Range/Units 06:06 WBC 10.41 (4.8-10.8) K/uL Hgb 11.8 L (14.0-18.0) g/dL Hct 35.6 L (42-52) % Plt Count 221 (130-400) K/uL BMP 04/18/21 06:06 Sodium 140 Potassium 4.3 Chloride 107 Carbon Dioxide 28 BUN 17 Creatinine 0.96 Glucose 111 H Calcium 8.1 L Diagnostic Findings Chest X-Ray 04/02/21 08:25 XR chest Pre-admission PA/Lat HISTORY: Preop. Back pain. COMPARISON: Chest 09/21/2019. FINDINGS: The lungs are clear. Cardiac silhouette is normal in size. No pleural effusions. No pneumothorax. IMPRESSION: No acute process. ACT 112: Negative or not required by law. Electronically signed by: Abdiel Florentino M.D. 04/02/2021 11:24 AM Lumbar Spine X-Ray 04/16/21 10:05 FL lumbar spine 2-3V CLINICAL HISTORY: L3-L4 Decompression/fusion COMPARISON STUDY: October 05, 2019 FLUOROSCOPY TIME: . NUMBER OF FLUOROSCOPIC IMAGES: 3 FINDINGS: Intraoperative fluoroscopic images presented for review shows transpedicular screws and fixating plates within L3 and L4 level. Previously seen orthopedic hardware within L5 vertebra was removed. Disc spacers are again seen. IMPRESSION: Partial hardware removal detailed above. ACT 112: Negative or not required by law. The above report was generated using voice recognition software. It may contain grammatical, syntax or spelling errors. Electronically signed by: Summer Stokes DO 04/16/2021 1:43 PM
--- NOTE | 2021-04-18 11:15 | Discharge Summary ---
Date of Service April 18, 2021 Admission HPI Per Admitting Provider This is a 61-year-old male well-known to me the presents with chronic persistent back and leg pain. Failing course of nonoperative care is here for surgical intervention. Principal Diagnosis Lumbar spinal stenosis with neurogenic claudication Discharge Data Allergies Allergy/AdvReac Type Severity Reaction Status Date / Time No Known Allergies Allergy Verified 03/24/21 15:02 Consultations 04/16/21 13:53 Consult Hospitalist Routine Procedures Performed Operation Date: 04/16/21 10:05 Actual Procedures p L3-L4 Decompression and Fusion, L4-S1 Hardware Removal, Spinal Cord Monitoring(Not Applicable) - Joel Green DO Ordered Studies 04/16/21 10:05 FL lumbar spine 2-3V Routine Hospital Course (1) Neurogenic claudication due to lumbar spinal stenosis: Patient underwent lumbar decompression fusion tolerated well second orthopedic for possibly. Postop day 1 is up and ambulating Patricio postop day #2 pain well controlled. Excellent strength testing. Subsequent discharge home. Discharge orders instructions from the chart for further review. Total Time Total Time Spent Total Time Spent (In Minutes): 20 minutes Discharge Plan Discharge Items Patient Disposition: Home - Self-Care Reason For Visit: Intervertebral Disc Disorders with Radiculopathy Discharge Diagnosis: Lumbar spinal stenosis with radiculopathy Activity: As commented below Non-emergency contact: Primary Care Provider Call non-emergency contact if: you have any medication questions Follow-up/Referrals: Amparo Ojeda MD [Primary Care Provider] - Diet: Regular Addtl Attending Provider Instructions: ACTIVITY RECOMMENDATIONS: SELF CARE INSTRUCTIONS AFTER THORACIC/LUMBAR FUSIONS 1. You may walk to your tolerance. It is good exercise for your legs and back. Expect some back and intermittent leg aches and pains. 2. You may perform "counter-top" level activities (make a sandwich, noemí with a project, etc.). 3. No bending or lifting of more than 10 pounds or back twisting of any nature (roll like a log when turning in bed). 4. You may ride in a car for 20-30 minutes at a time. No driving until after your first visit with your doctor. 5. Frequent changes of position and restricting sitting to 30 minutes at a time will help limit the amount of back spasms and stiffness you may experience. 6. You may discontinue the use of ambulatory aids (cane, crutches, etc.) once your strength and confidence allow. 7. You may bellhop captain the shower and let water strike your incision when you arrive home at least once daily. Do not take a tub bath, sit in a hot tub or go into a swimming pool until after your first recheck in the office. SPECIAL CARE INSTRUCTIONS: VERY IMPORTANT TO READ AND REVIEW A. Your surgical incision has been closed with a cosmetic suture under the skin that will dissolve in about 6 weeks. In 14 days, you can use a pair of clean scissors and cut the suture that is left outside of the skin at the ends of your incision. 1. The small skin tapes can be removed 7 days after surgery if they have not fallen off by that point. 2. You may keep the wound open to air as much as possible to promote healing after post-op day number 5 unless told otherwise by your doctor. 3. If you think the wound looks like it is becoming infected (redness or worsening drainage) and/or you are experiencing fever, chill or worsening back pain and muscle spasms, contact the office so that we may evaluate you as soon as possible. B. Complications are uncommon, but please contact us if you have any signs or symptoms of: 1. wound infection (fever higher than 102.5 degrees F, redness, separation of wound, drainage, or increasing pain from the incision) 2. blood clots in legs (pain, swelling, redness and warmth in legs) 3. urinary tract infection (fever higher than 102.5 degrees F, burning upon urination or increased frequency of urination) 4. nerve problems (inability to walk on your toes or heels, numbness, loss of bowel or bladder control) 5. any other symptoms that concern you C. Please call the office at if you have any concerns or questions about your operation or recovery. D. No smoking! Smoking drastically decreases the chance of a solid fusion. E. Do not take any anti-inflammatory medications (Indocin, Advil, Motrin, Aspirin, Naprosyn, etc.) as these may inhibit the chance of a solid fusion. Tylenol is okay to take for pain. MANAGING PAIN AFTER SPINAL SURGERY 1. Narcotic medication is intended for short-term use and will be provided for surgical pain. Surgical pain usually lasts for a period of 4-6 weeks. Narcotic medication includes Percocet, Vicodin, Darvocet, Tylenol #3 or Lortab. 2. Longer-term pain is more appropriately treated with non-narcotic medication such as Tylenol ES. 3. Muscle spasm is not appropriately treated with narcotics. Muscle relaxers such as Soma, Flexeril or Skelaxin can be used along with Tylenol ES. 4. Remember that we all live with some "aches and pains". This is not unusual or uncommon after an injury or as we get older. a. Back pain is expected and may include muscle spasms for 4 to 6 weeks after surgery. The pain should gradually improve. If the pain worsens for no apparent reason, please contact the office. b. Intermittent leg pain may also be experienced and should not be concerned about unless it worsens for no apparent reason. If so, please contact the office. 5. We will provide appropriate medication within the normal guidelines of their prescribed use. We will also be very cautious and aware of potential abuse and extended duration of patients' medication needs. a. Pain medications are for your comfort and to assist with sleep and rest so that the tissue can heal. They are not provided in order to return to normal activity and should not be used through the day. To do so or worsening pain at night can result from ongoing tissue damage and development of tolerance to the prescribed medicine. 6. Please allow 2-3 days to process refills. Prescriptions will not be mailed but must be picked up at the office. FOLLOW UP VISIT: Keep your scheduled follow-up appointment. Any questions, please call the office at . Pending Studies at Discharge: No Stand-Alone Forms: [facility], Smoking Cessation Medications and DC Order Prescriptions: New tramadol 50 mg tablet 50 mg PO Q6H PRN (Reason: pain, moderate) Qty: 30 RF: 0 oxycodone 5 mg tablet 5 mg PO Q6H PRN (Reason: pain, severe) Qty: 30 RF: 0 Continued carvedilol [Coreg] 12.5 mg Tablet 12.5 mg PO BID RF: 0 amlodipine 5 mg Tablet 5 mg PO QAM RF: 0 omeprazole 20 mg Tablet,Disintegrat, Delay Rel 20 mg PO QAM RF: 0 multivitamin Tablet 1 tab PO QAM RF: 0 ibuprofen 200 mg Tablet 200 mg PO Q6H PRN (Reason: Pain) RF: 0 methylprednisolone [Medrol (Onesimo)] 4 mg tablets,dose pack See Rx Instructions .ROUTE .COMPLEX Qty: 21 RF: 0 oxycodone 5 mg tablet 5 mg PO Q4 PRN (Reason: pain) Qty: 14 RF: 0 loratadine [Allergy Relief (loratadine)] 10 mg Tablet 10 mg PO DAILY PRN (Reason: Allergy Symptoms) RF: 0 Discharge Orders: Discharge Order (Routine); Ordered 04/18/21 Ordered By: Joel Green Admission Data Admit Date/Time: 04/16/21 12:40 Attending Provider: Joel Green Admit Provider: Joel Green Primary Care Provider: Amparo Ojeda Other Providers: Pop Kwan
[2021-04-18] MEDS ORDERED: bisacodyL 10 MG SUPP PR PRN (12:03)
[2021-04-18] MEDS: oxyCODONE HCL IR 5 MG TAB (IMMEDIATE RELEASE) PO PRN (13:03)
== END 2021-04-18 13:58 | disposition home or self-care (01) | DRG 454 ==
LOC: ASU 08:32 → 3E 12:40